=== PATIENT | female | born 1995 | race Caucasian/White ===

== ENCOUNTER 2016-07-20 13:25 | Emergency (ER) | payer OTHER ==
[~2016-07-20] VITALS: Ht 165.1 cm; Wt 90.7 kg
[~2016-07-20 13:25] MED LIST: MOTR200T44 PO; PREN1TAB11 PO; PRENTAB40 PO; TYLE325T5 PO
[2016-07-20 13:26] VITALS: BP 173/79
[2016-07-20] MEDS ORDERED: CYCL10TA PO (14:01)
[2016-07-20] MEDS ORDERED: IBUP80TA PO (14:01)
== END 2016-07-20 14:19 | disposition home or self-care (01) ==
LOC: M ED 14:19
DX: M54.32 Sciatica, left side (principal); Z88.5 Allergy status to narcotic agent

== ENCOUNTER 2016-08-14 20:27 | Emergency (ER) | payer OTHER ==
[~2016-08-14] VITALS: Ht 165.1 cm; Wt 81.6 kg
[2016-08-14 20:27] VITALS: BP 130/75
[~2016-08-14 20:27] MED LIST changes: +CYCL10TA PO; +IBUP80TA PO
== END 2016-08-14 21:43 | disposition home or self-care (01) ==
LOC: M ED 21:30
DX: S09.90XA Unspecified injury of head, initial encounter (principal); W07.XXXA Fall from chair, initial encounter; Y92.59 Other trade areas as the place of occurrence of the external cause; Y93.89 Activity, other specified; Y99.0 Civilian activity done for income or pay; F17.200 Nicotine dependence, unspecified, uncomplicated; Z88.5 Allergy status to narcotic agent

== ENCOUNTER 2016-08-27 14:11 | Emergency (ER) | payer OTHER ==
[~2016-08-27] VITALS: Ht 162.6 cm; Wt 81.6 kg
[2016-08-27 14:11] VITALS: BP 117/68
[2016-08-27] MEDS ORDERED: PANTOPRAZOLE 40MG INJ (PROTONIX) (C9113) IV ONE (15:45)
[2016-08-27] MEDS ORDERED: METOCLOPRAMIDE INJ 10MG/2ML VIAL (J2765) IV ONE (15:45)
[2016-08-27] MEDS ORDERED: NS 1,000 ML IV ONE (16:45)
--- NOTE | 2016-08-27 17:44 | REP ---
RIGHT UPPER QUADRANT ULTRASOUND: Real-time sonographic evaluation of the right is performed. The gallbladder demonstrates no evidence of intraluminal sludge or calculi, wall thickening or pericholecystic fluid. There is no intrahepatic or extrahepatic biliary dilatation. The common bile duct measures 3 mm in diameter. Liver and pancreas demonstrate no gross mass. Pancreas is not optimally seen due to overlying bowel gas. Right kidney demonstrates no hydronephrosis or nephroliths with normal size of 11 cm in length. IMPRESSION: Essentially negative right upper quadrant ultrasound. Signed by Lorenzo Sandoval MD 08/28/2016 04:04 P
[2016-08-27 18:09] LABS: BASO % 0.4 % (0.0-1.0); EOS # 0.1 K/mm3 (0.0-0.50); EOS % 1.3 % (0.0-3.0); LARGE UNSTAINED CELL # 0.1 K/mm3 (0.0-0.4); LARGE UNSTAINED CELL % 1.5 % (0.0-4.0); LYMPH # 1.9 K/mm3 (1.5-6.5); LYMPH % 17.9 % (24.0-44.0); MEAN CORPUSCULAR HEMOGLOBIN 28.2 pg (27.0-33.0); MEAN CORPUSCULAR HGB CONC 32.3 g/dl (32.0-36.5); MEAN CORPUSCULAR VOLUME 87.2 fl (80.0-96.0); MONO # 0.6 K/mm3 (0.0-0.8); MONO % 6.5 % (0.0-5.0); NEUTROPHILS # 6.9 K/mm3 (1.8-7.7); NEUTROPHILS % 72.3 % (36.0-66.0); PLATELET COUNT, AUTOMATED 239 k/mm3 (150-450); RED CELL DISTRIBUTION WIDTH 14.3 % (11.5-14.5); WHITE BLOOD COUNT 9.6 K/mm3 (4.0-10.0)
[2016-08-27 18:10] LABS: ADD MORPHOLOGY? YES
[2016-08-27 18:12] LABS: ALKALINE PHOSPHATASE 90 U/L (45-117); ALT/SGPT 30 U/L (12-78); AMYLASE 48 U/L (25-115); ANION GAP 8 MEQ/L (8-16); AST/SGOT 22 U/L (15-37); BILIRUBIN,DIRECT 0.1 MG/DL (0.0-0.2); BILIRUBIN,TOTAL 0.4 MG/DL (0.2-1.0); BLOOD UREA NITROGEN 13 MG/DL (7-18); CALCIUM LEVEL 8.1 MG/DL (8.5-10.1); CARBON DIOXIDE LEVEL 22 MEQ/L (21-32); CHLORIDE LEVEL 111 MEQ/L (98-107); CREATININE FOR GFR 0.69 MG/DL (0.55-1.02); GLOMERULAR FILTRATION RATE > 60.0 (>60); GLUCOSE, FASTING 79 MG/DL (70-105); HCG, SERUM QUANTITATIVE < 1.0 MIU/ML; POTASSIUM SERUM 3.7 MEQ/L (3.5-5.1); SODIUM LEVEL 141 MEQ/L (136-145)
== END 2016-08-27 19:17 | disposition left against medical advice (07) ==
LOC: M ED 17:09
DX: R10.9 Unspecified abdominal pain (principal); Z88.5 Allergy status to narcotic agent

== ENCOUNTER 2016-11-01 20:48 | Emergency (ER) | payer OTHER ==
[~2016-11-01] VITALS: Ht 165.1 cm; Wt 101.0 kg
[2016-11-01 23:27] VITALS: BP 141/74
[2017-02-20] MEDS ORDERED: PRE-TAB3 PO (00:30)
[2017-02-20] MEDS ORDERED: MACR100C43 PO (03:40)
== END 2016-11-01 23:28 | disposition home or self-care (01) ==
LOC: M ED 20:48
DX: F32.9 Major depressive disorder, single episode, unspecified (principal); Z88.5 Allergy status to narcotic agent

== ENCOUNTER 2017-01-01 22:21 | Emergency (ER) | payer OTHER ==
[~2017-01-01] VITALS: Ht 165.1 cm; Wt 100.0 kg
[2017-01-01 22:21] VITALS: BP 157/86
[2017-02-20] MEDS ORDERED: PRE-TAB3 PO (00:30)
[2017-02-20] MEDS ORDERED: MACR100C43 PO (03:40)
== END 2017-01-02 00:58 | disposition left against medical advice (07) ==
LOC: M ED 22:21
DX: R10.9 Unspecified abdominal pain (principal); Z53.21 Procedure and treatment not carried out due to patient leaving prior to being seen by health care provider

== ENCOUNTER → 2017-02-13 | Outpatient (CLI) | payer OTHER ==
[~2017-02-13] MED LIST changes: +MACR100C43 PO; +PRE-TAB3 PO
== END ==
LOC: M LAB 15:35
PROVIDERS: ATTEND Obstetrics & Gynecology
DX: O20.0 Threatened abortion (principal)

== ENCOUNTER → 2017-03-19 | Outpatient (CLI) | payer OTHER ==
[2017-03-19 16:32] LABS: BASO % 0.3 % (0.0-1.0); EOS # 0.1 10^3/uL (0.0-0.50); EOS % 0.7 % (0.0-3.0); IMMATURE GRANULOCYTE % 0.3 % (0-0); LYMPH # 1.9 10^3/uL (1.5-6.5); LYMPH % 20.3 % (24.0-44.0); MEAN CORPUSCULAR HEMOGLOBIN 29.1 pg (27.0-33.0); MEAN CORPUSCULAR HGB CONC 33.7 g/dl (32.0-36.5); MEAN CORPUSCULAR VOLUME 86.3 fl (80.0-96.0); MONO # 0.6 10^3/uL (0.0-0.8); MONO % 6.7 % (0.0-5.0); NEUTROPHILS # 6.8 10^3/uL (1.8-7.7); NEUTROPHILS % 71.7 % (36.0-66.0); PLATELET COUNT, AUTOMATED 307 10^3/uL (150-450); RED CELL DISTRIBUTION WIDTH 13.2 % (11.5-14.5); WHITE BLOOD COUNT 9.5 10^3/uL (4.0-10.0)
[2017-03-20 10:55] LABS: HBsAg Prenatal NEGATIVE (NEGATIVE)
== END ==
LOC: M LAB 15:12
PROVIDERS: ATTEND Advanced Practice Midwife
DX: Z36.89 Encounter for other specified antenatal screening (principal); Z3A.01 Less than 8 weeks gestation of pregnancy

== ENCOUNTER → 2017-03-20 | Outpatient (REF) | payer OTHER | LOC: M LAB REF 12:31 | PROVIDERS: ATTEND Advanced Practice Midwife | DX: Z36.89 Encounter for other specified antenatal screening (principal); Z3A.01 Less than 8 weeks gestation of pregnancy ==

== ENCOUNTER → 2017-03-25 | Outpatient (REF) | payer OTHER, MEDICAID | LOC: M LAB REF 17:04 | PROVIDERS: ATTEND Advanced Practice Midwife | DX: Z36.9 Encounter for antenatal screening, unspecified (principal); Z34.81 Encounter for supervision of other normal pregnancy, first trimester ==

== ENCOUNTER → 2017-04-19 | Outpatient (CLI) | payer OTHER ==
[2017-04-19 13:50] LABS: ALT/SGPT 13 U/L (12-78); AST/SGOT 5 U/L (7-37); BILIRUBIN,TOTAL 0.3 MG/DL (0.2-1.0); GLOMERULAR FILTRATION RATE > 60.0 (>60); URIC ACID 3.3 MG/DL (2.6-6.0)
== END ==
LOC: M LAB 12:32
DX: Z34.81 Encounter for supervision of other normal pregnancy, first trimester (principal)
CPT/HCPCS: 84460

== ENCOUNTER → 2017-05-20 | Outpatient (CLI) | payer OTHER | LOC: M RAD 09:27 | DX: Z34.82 Encounter for supervision of other normal pregnancy, second trimester (principal) | CPT/HCPCS: 76811 ==

== ENCOUNTER 2017-06-01 17:11 | Outpatient (CLI) | payer OTHER ==
[2017-06-01 18:39] LABS: APPEARANCE, URINE HAZY (CLEAR); BACTERIA, URINE AUTO NEGATIVE (NEGATIVE); BILIRUBIN, URINE AUTO NEGATIVE (NEGATIVE); BLOOD, URINE BLOOD 1+ (NEGATIVE); COLOR, URINE YELLOW (YELLOW); GLUCOSE, URINE (UA) AUTO NEGATIVE (NEGATIVE); KETONE, URINE AUTO NEGATIVE (NEGATIVE); LEUKOCYTE ESTERASE, URINE AUTO 3+ (NEGATIVE); MUCUS, URINE SMALL (NEGATIVE); NITRITE, URINE AUTO NEGATIVE (NEGATIVE); PROTEIN, URINE AUTO NEGATIVE (NEGATIVE); RBC, URINE AUTO 12 /HPF (0-3); SPECIFIC GRAVITY URINE AUTO 1.017 (1.002-1.035); SQUAMOUS EPITHELIAL CELL UR AU 2 /HPF (0-6); UROBILINOGEN, URINE AUTO 0.2 mg/dL (0.0-2.0); WBC, URINE AUTO 11 /HPF (0-3)
== END 2017-06-01 18:24 | disposition home or self-care (01) ==
LOC: M LDO 17:11
DX: O99.89 Other specified diseases and conditions complicating pregnancy, childbirth and the puerperium (principal); Z3A.20 20 weeks gestation of pregnancy; O23.42 Unspecified infection of urinary tract in pregnancy, second trimester
CPT/HCPCS: 76815

== ENCOUNTER → 2017-06-07 | Outpatient (CLI) | payer OTHER | LOC: M RAD 13:30 | DX: Z36.89 Encounter for other specified antenatal screening (principal); Z3A.21 21 weeks gestation of pregnancy | CPT/HCPCS: 76816 ==

== ENCOUNTER 2017-07-01 12:48 | Outpatient (CLI) | payer SELFPAY, OTHER ==
[2017-07-01 18:27] LABS: CHLAMYDIA DNA AMPLIFICATION NEGATIVE (NEGATIVE); GC DNA AMPLIFICATION NEGATIVE (NEGATIVE)
== END 2017-07-01 15:30 | disposition home or self-care (01) ==
LOC: M LDO 12:48
DX: O26.892 Other specified pregnancy related conditions, second trimester (principal); Z3A.24 24 weeks gestation of pregnancy; Z91.030 Bee allergy status; Z88.5 Allergy status to narcotic agent; Z91.018 Allergy to other foods
CPT/HCPCS: 59025

== ENCOUNTER → 2017-07-16 | Outpatient (CLI) | payer MEDICAID, SELFPAY | LOC: M RAD 17:03 | DX: Z36.9 Encounter for antenatal screening, unspecified (principal); Z3A.26 26 weeks gestation of pregnancy | CPT/HCPCS: 76816 ==

== ENCOUNTER → 2017-07-31 | Outpatient (CLI) | payer MEDICAID, SELFPAY ==
[2017-07-31 11:19] LABS: HEMATOCRIT 35.1 % (36.0-47.0); HEMOGLOBIN 11.5 g/dl (12.0-15.5); MEAN CORPUSCULAR HEMOGLOBIN 29.4 pg (27.0-33.0); MEAN CORPUSCULAR HGB CONC 32.8 g/dl (32.0-36.5); MEAN CORPUSCULAR VOLUME 89.8 fl (80.0-96.0); PLATELET COUNT, AUTOMATED 241 10^3/uL (150-450); RED BLOOD COUNT 3.91 10^6/uL (4.00-5.40); RED CELL DISTRIBUTION WIDTH 13.7 % (11.5-14.5)
[2017-07-31 11:44] LABS: ALBUMIN 2.9 GM/DL (3.2-5.2); ALBUMIN/GLOBULIN RATIO 0.67 (1.00-1.93); ALKALINE PHOSPHATASE 120 U/L (45-117); ALT/SGPT 10 U/L (12-78); AMYLASE 59 U/L (25-115); BILIRUBIN,DIRECT < 0.1 MG/DL (0.0-0.2); BILIRUBIN,TOTAL 0.3 MG/DL (0.2-1.0); LIPASE 116 U/L (73-393); TOTAL PROTEIN 7.2 GM/DL (6.4-8.2)
[2017-08-01 11:15] LABS: AST/SGOT 7 U/L (7-37); WHITE BLOOD COUNT 10.1 10^3/uL (4.0-10.0)
== END ==
LOC: M LAB 10:55
DX: R10.11 Right upper quadrant pain (principal)
CPT/HCPCS: 82150

== ENCOUNTER 2017-08-01 05:14 | Outpatient (CLI) | payer SELFPAY ==
[2017-08-01] MEDS: PROMETHAZINE INJ 25 MG/ML VIAL (J2550) IV (06:14)
[2017-08-01] MEDS: LACTATED RINGER'S 1000 ML IV (06:14)
[2017-08-01 06:39] LABS: HEMATOCRIT 33.1 % (36.0-47.0); MEAN CORPUSCULAR HEMOGLOBIN 30.1 pg (27.0-33.0); MEAN CORPUSCULAR HGB CONC 33.2 g/dl (32.0-36.5); MEAN CORPUSCULAR VOLUME 90.4 fl (80.0-96.0); PLATELET COUNT, AUTOMATED 226 10^3/uL (150-450); RED BLOOD COUNT 3.66 10^6/uL (4.00-5.40); RED CELL DISTRIBUTION WIDTH 13.7 % (11.5-14.5); WHITE BLOOD COUNT 11.5 10^3/uL (4.0-10.0)
[2017-08-01 07:01] LABS: ALBUMIN 2.6 GM/DL (3.2-5.2); ALBUMIN/GLOBULIN RATIO 0.68 (1.00-1.93); ALKALINE PHOSPHATASE 108 U/L (45-117); ALT/SGPT 11 U/L (12-78); AMYLASE 49 U/L (25-115); AST/SGOT 6 U/L (7-37); BILIRUBIN,DIRECT < 0.1 MG/DL (0.0-0.2); BILIRUBIN,TOTAL 0.2 MG/DL (0.2-1.0); LIPASE 108 U/L (73-393); TOTAL PROTEIN 6.4 GM/DL (6.4-8.2)
[2017-08-01] MEDS ORDERED: FAMOTIDINE 20 MG TAB As Ordered (07:57)
[2017-08-01] MEDS: FAMOTIDINE 20 MG TAB PO (08:04)
[2017-08-01] MEDS: LR 1,000 ML IV (09:10)
== END 2017-08-01 10:10 | disposition home or self-care (01) ==
LOC: M LDO 05:14
DX: O26.893 Other specified pregnancy related conditions, third trimester (principal); R10.11 Right upper quadrant pain; O21.8 Other vomiting complicating pregnancy; Z3A.28 28 weeks gestation of pregnancy
CPT/HCPCS: 76705

== ENCOUNTER → 2017-08-13 | Outpatient (CLI) | payer MEDICAID, SELFPAY ==
[2017-08-13 12:44] LABS: BASO % 0.2 % (0.0-1.0); EOS # 0.2 10^3/uL (0.0-0.50); EOS % 1.8 % (0.0-3.0); HEMATOCRIT 33.5 % (36.0-47.0); HEMOGLOBIN 11.1 g/dl (12.0-15.5); IMMATURE GRANULOCYTE % 0.6 % (0-3.0); LYMPH # 1.7 10^3/uL (1.5-6.5); LYMPH % 16.8 % (24.0-44.0); MEAN CORPUSCULAR HEMOGLOBIN 30.1 pg (27.0-33.0); MEAN CORPUSCULAR HGB CONC 33.1 g/dl (32.0-36.5); MEAN CORPUSCULAR VOLUME 90.8 fl (80.0-96.0); MONO # 0.7 10^3/uL (0.0-0.8); MONO % 6.8 % (0.0-5.0); NEUTROPHILS # 7.4 10^3/uL (1.8-7.7); NEUTROPHILS % 73.8 % (36.0-66.0); PLATELET COUNT, AUTOMATED 234 10^3/uL (150-450); RED BLOOD COUNT 3.69 10^6/uL (4.00-5.40); RED CELL DISTRIBUTION WIDTH 13.9 % (11.5-14.5); WHITE BLOOD COUNT 10.1 10^3/uL (4.0-10.0)
[2017-08-13 13:00] LABS: GLUCOSE CHALLENGE TEST 1 HOUR 101 MG/DL (LESS THAN 140)
== END ==
LOC: M LAB 10:47
DX: Z34.82 Encounter for supervision of other normal pregnancy, second trimester (principal)
CPT/HCPCS: 82950

== ENCOUNTER → 2017-09-27 | Outpatient (REF) | payer MEDICAID | LOC: M LAB REF 17:10 | DX: Z34.83 Encounter for supervision of other normal pregnancy, third trimester (principal); Z3A.00 Weeks of gestation of pregnancy not specified ==

== ENCOUNTER 2017-12-02 19:10 | Emergency (ER) | payer OTHER, MEDICAID | END 2017-12-02 23:30 | disposition home or self-care (01) | LOC: M ED 19:10 | DX: J03.90 Acute tonsillitis, unspecified (principal); J45.909 Unspecified asthma, uncomplicated; Z88.5 Allergy status to narcotic agent; Z91.030 Bee allergy status; Z91.018 Allergy to other foods | CPT/HCPCS: 87880 ==

== ENCOUNTER → 2018-01-24 | Outpatient (CLI) | payer OTHER ==
[2018-01-24 17:44] LABS: CONTROL LINE HCG INT CTR LINE PRESENT; HCG, SERUM QUALITATIVE NEGATIVE (NEGATIVE)
[2018-01-24 17:49] LABS: CHOLESTEROL LEVEL 112 MG/DL (<200); FREE T4 0.86 NG/DL (0.76-1.46); HDL CHOLESTEROL 50 MG/DL (>40); LDL CHOLESTEROL 34 MG/DL (<100); NON-HDL-C 62 MG/DL; TRIGLYCERIDES LEVEL 141 MG/DL (<150)
[2018-01-24 17:51] LABS: TOTAL 25(OH) VITAMIN D 17.8 NG/ML (30.0-100.0)
[2018-01-24 17:52] LABS: FOLATE 8.8 NG/ML
[2018-01-24 18:30] LABS: BASO % 0.4 % (0.0-1.0); EOS # 0.2 10^3/uL (0.0-0.50); EOS % 2.4 % (0.0-3.0); HEMATOCRIT 37.4 % (36.0-47.0); HEMOGLOBIN 12.3 g/dl (12.0-15.5); IMMATURE GRANULOCYTE % 0.3 % (0-3.0); LYMPH # 2.7 10^3/uL (1.5-6.5); LYMPH % 29.2 % (24.0-44.0); MEAN CORPUSCULAR HGB CONC 32.9 g/dl (32.0-36.5); MEAN CORPUSCULAR VOLUME 85.2 fl (80.0-96.0); MONO # 0.6 10^3/uL (0.0-0.8); MONO % 6.3 % (0.0-5.0); NEUTROPHILS # 5.7 10^3/uL (1.8-7.7); NEUTROPHILS % 61.4 % (36.0-66.0); PLATELET COUNT, AUTOMATED 300 10^3/uL (150-450); RED BLOOD COUNT 4.39 10^6/uL (4.00-5.40); RED CELL DISTRIBUTION WIDTH 13.9 % (11.5-14.5); WHITE BLOOD COUNT 9.3 10^3/uL (4.0-10.0)
== END ==
LOC: M LAB 16:10
DX: F32.1 Major depressive disorder, single episode, moderate (principal)
CPT/HCPCS: 82746

== ENCOUNTER 2018-03-30 19:17 | Emergency (ER) | payer OTHER ==
[2018-03-30] MEDS: METOCLOPRAMIDE INJ 10MG/2ML VIAL (J2765) IV (19:30)
[2018-03-30] MEDS: NS 1,000 ML IV (19:30)
[2018-03-30 20:06] LABS: BASO % 0.3 % (0.0-1.0); EOS # 0.1 10^3/uL (0.0-0.50); EOS % 1.6 % (0.0-3.0); HEMOGLOBIN 11.8 g/dl (12.0-15.5); IMMATURE GRANULOCYTE % 0.3 % (0-3.0); LYMPH # 2.1 10^3/uL (1.5-6.5); LYMPH % 27.9 % (24.0-44.0); MEAN CORPUSCULAR HEMOGLOBIN 28.2 pg (27.0-33.0); MEAN CORPUSCULAR HGB CONC 31.9 g/dl (32.0-36.5); MEAN CORPUSCULAR VOLUME 88.3 fl (80.0-96.0); MONO # 0.5 10^3/uL (0.0-0.8); MONO % 6.7 % (0.0-5.0); NEUTROPHILS # 4.9 10^3/uL (1.8-7.7); NEUTROPHILS % 63.2 % (36.0-66.0); PLATELET COUNT, AUTOMATED 266 10^3/uL (150-450); RED BLOOD COUNT 4.19 10^6/uL (4.00-5.40); RED CELL DISTRIBUTION WIDTH 13.6 % (11.5-14.5); WHITE BLOOD COUNT 7.7 10^3/uL (4.0-10.0)
[2018-03-30 20:22] LABS: HCG, SERUM QUANTITATIVE < 1.0 MIU/ML
[2018-03-30 20:48] LABS: KETONE, URINE AUTO RFX NEGATIVE (NEGATIVE); MUCUS, URINE RFX SMALL (NEGATIVE); NITRITE, URINE AUTO RFX NEGATIVE (NEGATIVE); RBC, URINE AUTO RFX 123 /HPF (0-3); SQUAM EPITHELIAL CELL UR AURFX 5 /HPF (0-6)
[2018-03-30 20:49] LABS: LEUKOCYTE ESTERASE UR AUTO RFX TRACE (NEGATIVE); WBC, URINE AUTO RFX 34 /HPF (0-3)
== END 2018-03-30 21:25 | disposition home or self-care (01) ==
LOC: M ED 19:17
DX: R25.2 Cramp and spasm (principal); N76.0 Acute vaginitis; F41.9 Anxiety disorder, unspecified; Z88.5 Allergy status to narcotic agent; Z91.018 Allergy to other foods; Z91.030 Bee allergy status
CPT/HCPCS: J2765

== ENCOUNTER 2018-05-27 18:19 | Emergency (ER) | payer OTHER ==
[~2018-05-27] VITALS: Ht 162.6 cm; Wt 100.0 kg
[~2018-05-27 18:19] MED LIST changes: +CLEO300C2 PO; +FLAG500T PO; +MAPA500T2 PO
[2018-05-27] MEDS ORDERED: PRENATAL (18:30)
[2018-05-27] MEDS ORDERED: MACR100C43 PO (20:28)
[2018-05-27] MEDS ORDERED: NITROFURANTOIN (MACROBID) 100 MG CAP PO ONE (20:30)
[2018-05-27 20:36] VITALS: BP 133/72
== END 2018-05-27 20:39 | disposition home or self-care (01) ==
LOC: M ED 18:19
DX: O23.11 Infections of bladder in pregnancy, first trimester (principal); O99.511 Diseases of the respiratory system complicating pregnancy, first trimester; J45.909 Unspecified asthma, uncomplicated; Z3A.08 8 weeks gestation of pregnancy; Z88.5 Allergy status to narcotic agent; Z91.018 Allergy to other foods; Z91.030 Bee allergy status

== ENCOUNTER → 2018-06-27 | Outpatient (CLI) | payer OTHER ==
[~2018-06-27] MED LIST changes: +PRENATAL
[2018-06-27 11:51] LABS: BASO % 0.2 % (0.0-1.0); EOS # 0.1 10^3/uL (0.0-0.50); EOS % 0.9 % (0.0-3.0); HEMATOCRIT 34.8 % (36.0-47.0); HEMOGLOBIN 11.6 g/dl (12.0-15.5); LYMPH # 1.5 10^3/uL (1.5-6.5); LYMPH % 18.8 % (24.0-44.0); MEAN CORPUSCULAR HGB CONC 33.3 g/dl (32.0-36.5); MONO # 0.6 10^3/uL (0.0-0.8); MONO % 7.2 % (0.0-5.0); NEUTROPHILS # 5.9 10^3/uL (1.8-7.7); NEUTROPHILS % 72.5 % (36.0-66.0); PLATELET COUNT, AUTOMATED 242 10^3/uL (150-450); WHITE BLOOD COUNT 8.1 10^3/uL (4.0-10.0)
[2018-06-27 12:21] LABS: TOTAL PROTEIN,RANDOM URINE 14.1 MG/DL (0.0-12.0)
[2018-06-27 12:35] LABS: HEMOGLOBIN A1c 5.1 %
[2018-06-27 12:47] LABS: ALT/SGPT 13 U/L (12-78); BILIRUBIN,TOTAL 0.2 MG/DL (0.2-1.0); GLOMERULAR FILTRATION RATE > 60.0 (>60); GLUCOSE CHALLENGE TEST 1 HOUR 64 MG/DL (LESS THAN 140); LDH LACTATE DEHYDROGENASE 123 U/L (84-246); RUBELLA IgG QUALITATIVE IMMUNE (IMMUNE); URIC ACID 3.2 MG/DL (2.6-6.0)
[2018-06-27 12:56] LABS: HIV 1&2 SCREEN CENTAUR NEGATIVE (NEGATIVE)
[2018-06-27 13:28] LABS: CHLAMYDIA DNA AMPLIFICATION NEGATIVE (NEGATIVE); GC DNA AMPLIFICATION NEGATIVE (NEGATIVE)
== END ==
LOC: M LAB 10:12
PROVIDERS: ATTEND Advanced Practice Midwife
DX: Z34.81 Encounter for supervision of other normal pregnancy, first trimester (principal); Z3A.08 8 weeks gestation of pregnancy

== ENCOUNTER → 2018-07-02 | Outpatient (REF) | payer OTHER | LOC: M LAB REF 12:49 | PROVIDERS: ATTEND Advanced Practice Midwife | DX: O23.41 Unspecified infection of urinary tract in pregnancy, first trimester (principal); Z3A.00 Weeks of gestation of pregnancy not specified ==

== ENCOUNTER → 2018-07-02 | Outpatient (REF) | payer OTHER | LOC: M LAB REF 13:20 | PROVIDERS: ATTEND Advanced Practice Midwife | DX: Z12.4 Encounter for screening for malignant neoplasm of cervix (principal); R87.612 Low grade squamous intraepithelial lesion on cytologic smear of cervix (LGSIL) ==

== ENCOUNTER 2018-07-23 21:39 | Emergency (ER) | payer OTHER ==
[~2018-07-23] VITALS: Ht 165.1 cm; Wt 100.0 kg
[2018-07-23] MEDS ORDERED: ONDANSETRON 4 MG ORAL DISINTEGRATING TAB (Q0162 PER 1MG) PO ONE (22:15)
[2018-07-23 23:03] LABS: INFLUENZA A AMPLIFICATION NEGATIVE (NEGATIVE); INFLUENZA B AMPLIFICATION NEGATIVE (NEGATIVE)
[2018-07-23] MEDS ORDERED: ZOFR4TAB16 PO (23:18)
[2018-07-23 23:25] VITALS: BP 135/60
== END 2018-07-23 23:30 | disposition home or self-care (01) ==
LOC: M ED 21:39
DX: J21.0 Acute bronchiolitis due to respiratory syncytial virus (principal); Z91.030 Bee allergy status; Z88.5 Allergy status to narcotic agent; Z91.018 Allergy to other foods
CPT/HCPCS: 87631; 99283; Q0162

== ENCOUNTER → 2018-07-31 | Outpatient (CLI) | payer OTHER ==
[~2018-07-31] MED LIST changes: +ZOFR4TAB16 PO
--- NOTE | 2018-08-01 05:05 | REP ---
Clinical: Anatomical evaluation. Comparison: None . Findings: Examination demonstrates a single live intrauterine in transverse (head to maternal right) presentation. motion is identified by technologist. Placenta is noted anterior and grade air grade zero without evidence for placenta previa or abruption. Amniotic fluid volume is normal. Cervix measures 4.6 cm in length and appears closed. No evidence for nuchal cord. Gestational age by LMP 18 weeks 0 days with DANIEL 01/01/2019 . Gestational age by current measurements 17 weeks 0 days with DANIEL 01/08/2019 . FHR equals 157 beats per minute. BPD 3.5 cm 16 weeks 6 days HC 13.3 cm 16 weeks 6 days AC 11.0 cm 16 weeks 6 days FL 2.5 cm 17 weeks 4-day HL 2.3 cm 17 weeks 0 day HC/AC ratio 1.21 Estimated weight 182 grams ( the 16th percentile). Anatomical assessment demonstrates normal structures including cranium, choroid plexus, cavum, lungs, four-chamber heart, diaphragm, stomach, cord insertion, kidneys/bladder, and extremities. Limited evaluation of the posterior fossa, facial features, cardiac ventricular outflow tracts, three-vessel cord, and spine. Impression: 1. Single live intrauterine in transverse lie demonstrating appropriate interval growth. 2. Anatomical limitations may warrant reevaluation and follow-up. Electronically Signed by Ren Robertson MD 08/01/2018 04:57 A
== END ==
LOC: M RAD 10:22
PROVIDERS: ATTEND Obstetrics & Gynecology
DX: O10.012 Pre-existing essential hypertension complicating pregnancy, second trimester (principal); Z3A.17 17 weeks gestation of pregnancy

== ENCOUNTER → 2018-09-02 | Outpatient (CLI) | payer OTHER ==
--- NOTE | 2018-09-03 06:41 | REP ---
Clinical: Anatomical evaluation. Comparison: 07/31/2018 . Findings: Examination demonstrates a single live intrauterine in transverse (head to maternal left) presentation. motion is identified by technologist. Placenta is noted anterior fundal and grade grade zero without evidence for placenta previa or abruption. Amniotic fluid volume is normal. Cervix measures 5.9 cm in length and appears closed. No evidence for nuchal cord. Gestational age by LMP 22 weeks 5 days with DANIEL 01/01/2019 . Gestational age by current measurements 21 weeks to date with DANIEL 01/11/2019 . FHR equals 139 beats per minute. Estimated weight 418 grams ( 34th percentile). Anatomical assessment demonstrates normal structures including cerebellum/posterior fossa, facial features, three-vessel cord, and spine. Impression: 1. Single live intrauterine in transverse lie demonstrating appropriate interval growth. 2. Continued limited evaluation of the cardiac ventricular outflow tracts. In conjunction with prior examination anatomical assessment is otherwise complete and normal. Electronically Signed by Ren Robertson MD 09/03/2018 06:31 A
== END ==
LOC: M RAD 16:06
PROVIDERS: ATTEND Obstetrics & Gynecology
DX: O10.012 Pre-existing essential hypertension complicating pregnancy, second trimester (principal); Z3A.21 21 weeks gestation of pregnancy

== ENCOUNTER → 2018-10-08 | Outpatient (CLI) | payer OTHER ==
--- NOTE | 2018-10-08 12:05 | REP ---
OB ULTRASOUND: Real-time sonographic evaluation of the gravid uterus is performed. There is a single living intrauterine gestation with estimated gestational age 27 weeks 6 days, EDC 01/01/2019. Today's measurements indicate appropriate growth. Biometry and Growth: BPD 65 mm = 26 weeks 1 day, 13th percentile HC 241 mm = 26 weeks 1 day, 12th percentile AC 226 mm = 27 weeks 0 days, 32nd percentile FL 55 mm = 29 weeks 0 days, 73rd percentile HC/AC ratio 1.06 within the normal range. Estimated weight 1091 grams, 34th percentile. SEEN/GROSSLY UNREMARKABLE Lateral ventricles Yes Posterior fossa Yes Upper lip Yes Four-chamber heart Yes LVOT Yes RVOT Yes Stomach Yes Cord insertion Yes Three vessel cord Yes Kidneys Yes Bladder Yes Spine Yes Cervical length: Closed and measures 3.3 cm in length. heart rate: 141 beats per minute. position: Vertex. Placenta: Anterior and grade 2 with no previa or abruption. Amniotic fluid: Within normal limits. Electronically Signed by Lorenzo Sandoval MD 10/08/2018 04:38 P
== END ==
LOC: M RAD 10:33
PROVIDERS: ATTEND Advanced Practice Midwife
DX: O10.012 Pre-existing essential hypertension complicating pregnancy, second trimester (principal); Z3A.27 27 weeks gestation of pregnancy

== ENCOUNTER → 2018-11-03 | Outpatient (CLI) | payer OTHER ==
[2018-11-03 14:04] LABS: HEMATOCRIT 31.5 % (36.0-47.0); HEMOGLOBIN 10.2 g/dl (12.0-15.5); MEAN CORPUSCULAR HEMOGLOBIN 29.9 pg (27.0-33.0); MEAN CORPUSCULAR HGB CONC 32.4 g/dl (32.0-36.5); MEAN CORPUSCULAR VOLUME 92.4 fl (80.0-96.0); PLATELET COUNT, AUTOMATED 209 10^3/uL (150-450); RED BLOOD COUNT 3.41 10^6/uL (4.00-5.40); WHITE BLOOD COUNT 7.5 10^3/uL (4.0-10.0)
== END ==
LOC: M LAB 12:18
PROVIDERS: ATTEND Obstetrics & Gynecology
DX: O10.012 Pre-existing essential hypertension complicating pregnancy, second trimester (principal); Z36.89 Encounter for other specified antenatal screening; Z3A.00 Weeks of gestation of pregnancy not specified

== ENCOUNTER → 2018-11-03 | Outpatient (CLI) | payer OTHER | LOC: M LAB 12:22 | PROVIDERS: ATTEND Advanced Practice Midwife | DX: O10.012 Pre-existing essential hypertension complicating pregnancy, second trimester (principal); Z36.89 Encounter for other specified antenatal screening; Z3A.00 Weeks of gestation of pregnancy not specified ==

== ENCOUNTER 2018-11-16 17:54 | Outpatient (CLI) | payer OTHER ==
[~2018-11-16] VITALS: Ht 165.1 cm; Wt 103.1 kg
[2018-11-16 18:24] VITALS: BP 122/67
[2018-11-16 18:51] VITALS: BP 119/70
[2018-11-16] MEDS ORDERED: PROMETHAZINE 25 MG TAB PO ONE (20:15)
[2018-11-16] MEDS ORDERED: PROMETHAZINE 25 MG TAB As Ordered ONE (20:19)
== END 2018-11-16 20:23 | disposition home or self-care (01) ==
LOC: M LDO 17:54
PROVIDERS: ATTEND Obstetrics & Gynecology
DX: O26.893 Other specified pregnancy related conditions, third trimester (principal); Z3A.33 33 weeks gestation of pregnancy; O13.9 Gestational [pregnancy-induced] hypertension without significant proteinuria, unspecified trimester; O99.013 Anemia complicating pregnancy, third trimester; Z88.5 Allergy status to narcotic agent

== ENCOUNTER 2018-12-04 23:48 | Outpatient (CLI) | payer OTHER ==
[~2018-12-04] VITALS: Ht 165.1 cm; Wt 104.6 kg
== END 2018-12-05 00:40 | disposition home or self-care (01) ==
LOC: M LDO 23:48
PROVIDERS: ATTEND Obstetrics & Gynecology
DX: O26.853 Spotting complicating pregnancy, third trimester (principal); O47.03 False labor before 37 completed weeks of gestation, third trimester; Z3A.36 36 weeks gestation of pregnancy

== ENCOUNTER → 2018-12-04 | Outpatient (REF) | payer OTHER | LOC: M LAB REF 13:09 | PROVIDERS: ATTEND Advanced Practice Midwife | DX: O10.013 Pre-existing essential hypertension complicating pregnancy, third trimester (principal) ==

== ENCOUNTER 2018-12-25 17:02 | Inpatient (IN) | payer OTHER ==
[~2018-12-25] VITALS: Ht 165.1 cm; Wt 106.0 kg
[2018-12-25] MEDS ORDERED: PENICILLIN G POTASSIUM IV 5 MU in D5W MINI-BAG PLUS 100 ML IV STA (18:03)
[2018-12-25] MEDS ORDERED: miSOPROStol 50 MCG 1/2 TAB (S0191) PO SCH (18:15)
[2018-12-25 18:56] VITALS: BP 122/76
[2018-12-25 19:03] LABS: HEMATOCRIT 30.4 % (36.0-47.0); HEMOGLOBIN 9.7 g/dl (12.0-15.5); MEAN CORPUSCULAR HEMOGLOBIN 28.4 pg (27.0-33.0); MEAN CORPUSCULAR HGB CONC 31.9 g/dl (32.0-36.5); MEAN CORPUSCULAR VOLUME 89.1 fl (80.0-96.0); PLATELET COUNT, AUTOMATED 210 10^3/uL (150-450); RED BLOOD COUNT 3.41 10^6/uL (4.00-5.40); WHITE BLOOD COUNT 9.3 10^3/uL (4.0-10.0)
[2018-12-25] MEDS ORDERED: LR 1,000 ML IV SCH (19:15)
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
[2018-12-25 19:30] VITALS: BP 116/65
[2018-12-25 19:45] VITALS: BP 116/55
[2018-12-25 20:03] VITALS: BP 116/55
[2018-12-25 21:09] VITALS: BP 93/53
[2018-12-25] MEDS ORDERED: PENICILLIN G POTASSIUM IV 2.5 MU in APPROPRIATE DILUENT 1 EA IV SCH (23:00)
[2018-12-25] MEDS ORDERED: OXYTOCIN 30 UNITS IN 0.9% NaCl 500ML IV BAG (J2590) As Ordered ONE (23:38)
[2018-12-25] MEDS ORDERED: OXYTOCIN DRIP 30 UNITS in APPROPRIATE DILUENT 1 EA IV SCH (23:45)
[2018-12-26] VITALS (37 sets, daily range): BP systolic 82–120; BP diastolic 39–71
[2018-12-26] MEDS ORDERED: FENTANYL 2MCG/ML ROPIVACAINE 0.2% IN 0.9% NACL 100ML IVBAG As Ordered ONE (01:36)
[2018-12-26] MEDS ORDERED: ePHEDrine SULFATE 25 MG/5 ML(5MG/ML) SYRINGE IV PRN (02:05)
[2018-12-26] MEDS ORDERED: diphenhydrAMINE INJ 50MG/ML VIAL (J1200) IV PRN (02:05)
[2018-12-26] MEDS ORDERED: FENTANYL/ROPIVACAINE/NACL BAG 100 ML EPIDURAL SCH (02:05)
[2018-12-26] MEDS ORDERED: ONDANSETRON 4MG/2ML VIAL (J2405) IV PRN (02:05)
[2018-12-26] MEDS ORDERED: EPIDURAL/PCA KEYS XX PRN (02:05)
[2018-12-26] MEDS ORDERED: REFRIGERATOR IV KEYS XX PRN (02:05)
[2018-12-26] MEDS ORDERED: EPIDURAL COMMENT XX SCH (02:05)
[2018-12-26] MEDS ORDERED: NALOXONE INJ 0.4 MG/1 ML VIAL (J2310) IV PRN (02:05)
--- NOTE | 2018-12-26 08:09 | DNPDOC ---
[facility] Delivery Note Delivery Note DATE OF DELIVERY: December 26, 2018 PREDELIVERY DIAGNOSIS: 39+1/7 weeks' gestation and labor. POST DELIVERY DIAGNOSIS: Delivered. PROCEDURE: Spontaneous vaginal delivery. PROVIDER: Flor Mccurdy CNM ANESTHESIA: Epidural. ESTIMATED BLOOD LOSS: 250 mL. FINDINGS: 7 pound 0 ounce, 3180gm female , Score 8/9, no nuchal cord. DELIVERY SUMMARY: Patient is a 23-year-old 4 now para 4-0-0-4 who was admitted to labor and delivery for elective induction of labor. She received pitocin and utilized an epidural for labor coping. AROM clear fluid 0402. Fully dilated with pressure 0700. Viable female child delivered MIKE without difficulty @ 0738. Spontaneous respirations with stimulation, transitioned on maternal abdomen. Cord doubly clamped and cut by FOB under my direction when pulsations ceased. Apgars 8/9. Placenta waggoner, intact with 3v cord and intact succenturiate lobe @ 0751. Fundus firmed with massage and IV pitocin bolus. EBL 250. Cervix, vagina, perineum intact. Sponge, sharp and instrument count correct. Flor Mccurdy CNM Dec 26, 2018 08:09
[2018-12-26] MEDS ORDERED: DOCUSATE SODIUM 100 MG CAP PO PRN (08:15)
[2018-12-26] MEDS ORDERED: MOM 30ML SUSPENSION UDC PO PRN (08:15)
[2018-12-26] MEDS ORDERED: RHOGAM 300 MCG (1500 IU) INJ (J2790) IM SCH (08:15)
[2018-12-26] MEDS ORDERED: DIBUCAINE 1% OINTMENT 30GM TOP PRN (08:15)
[2018-12-26] MEDS ORDERED: ACETAMINOPHEN TAB 650MG DOSE (2X325MG) PO PRN (08:15)
[2018-12-26] MEDS ORDERED: ACETAMINOPHEN 500 MG TAB PO PRN (08:15)
[2018-12-26] MEDS ORDERED: IBUPROFEN 800 MG TAB PO PRN (08:15)
[2018-12-26] MEDS ORDERED: METHYLERGONOVINE MALEATE 0.2 MG TAB PO PRN (08:15)
[2018-12-26] MEDS ORDERED: MEASLES,MUMPS,RUBELLA VACCINE INJ (MMR-II) (90707) SC SCH (08:15)
[2018-12-26] MEDS ORDERED: IBUPROFEN 600 MG TAB PO PRN (08:15)
[2018-12-26] MEDS ORDERED: PRENATAL VITAMINS CHEWABLE TABLET PO SCH (09:00)
[2018-12-27 06:00] VITALS: BP 128/75
== END 2018-12-27 12:40 | disposition home or self-care (01) | DRG 560 ==
LOC: EEVIPCON 17:02 → M LDI 17:02 → M OBS 12-26 10:50
PROVIDERS: ADMIT Advanced Practice Midwife; ATTEND Advanced Practice Midwife
PROC: 10E0XZZ Delivery of Products of Conception, External Approach (ICD-10-PCS; principal; 2018-12-25)
PROC: 3E0P7GC Introduction of Other Therapeutic Substance into Female Reproductive, Via Natural or Artificial Opening (ICD-10-PCS; 2018-12-25)
PROC: 10907ZC Drainage of Amniotic Fluid, Therapeutic from Products of Conception, Via Natural or Artificial Opening (ICD-10-PCS; 2018-12-25)
DX: O99.824 Streptococcus B carrier state complicating childbirth (principal); Z3A.39 39 weeks gestation of pregnancy; Z37.0 Single live birth

== ENCOUNTER → 2019-04-03 | Outpatient (REF) | payer OTHER | LOC: M LAB REF 12:19 | PROVIDERS: ATTEND Physician Assistant | DX: J03.90 Acute tonsillitis, unspecified (principal) ==

== ENCOUNTER → 2019-06-09 | Outpatient (REF) | payer OTHER ==
[2019-06-09 13:30] LABS: BASO % 0.6 % (0.0-1.0); EOS # 0.1 10^3/uL (0.0-0.5); EOS % 1.9 % (0.0-3.0); HEMATOCRIT 38.2 % (36.0-47.0); HEMOGLOBIN 11.8 g/dl (12.0-15.5); LYMPH # 1.6 10^3/uL (1.5-5.0); LYMPH % 25.1 % (24.0-44.0); MEAN CORPUSCULAR HEMOGLOBIN 26.5 pg (27.0-33.0); MEAN CORPUSCULAR HGB CONC 30.9 g/dl (32.0-36.5); MEAN CORPUSCULAR VOLUME 85.8 fl (80.0-96.0); MONO # 0.5 10^3/uL (0.0-0.8); MONO % 7.9 % (0.0-5.0); NEUTROPHILS % 64.2 % (36.0-66.0); PLATELET COUNT, AUTOMATED 273 10^3/uL (150-450); RED BLOOD COUNT 4.45 10^6/uL (4.00-5.40); WHITE BLOOD COUNT 6.3 10^3/uL (4.0-10.0)
[2019-06-09 13:44] LABS: ALBUMIN 4.2 GM/DL (3.2-5.2); ALT/SGPT 22 U/L (12-78); BILIRUBIN,TOTAL 0.3 MG/DL (0.2-1.0); BLOOD UREA NITROGEN 11 MG/DL (7-18); CALCIUM LEVEL 8.7 MG/DL (8.5-10.1); CARBON DIOXIDE LEVEL 27 MEQ/L (21-32); CHLORIDE LEVEL 110 MEQ/L (98-107); CHOLESTEROL LEVEL 117 MG/DL (<200); CHOLESTEROL RISK RATIO 2.166 (<5); CREATININE FOR GFR 0.64 MG/DL (0.55-1.30); FREE T4 0.75 NG/DL (0.76-1.46); GLOMERULAR FILTRATION RATE > 60.0 (>60); GLUCOSE, FASTING 98 MG/DL (70-100); HDL CHOLESTEROL 54 MG/DL (>40); LDL CHOLESTEROL 46 MG/DL (<100); NON-HDL-C 63 MG/DL; SODIUM LEVEL 142 MEQ/L (136-145); TOTAL PROTEIN 7.7 GM/DL (6.4-8.2); TRIGLYCERIDES LEVEL 83 MG/DL (<150)
[2019-06-09 13:45] LABS: TOTAL 25(OH) VITAMIN D 8.4 NG/ML (30.0-100.0)
[2019-06-09 14:39] LABS: HEMOGLOBIN A1c 5.4 %
== END ==
LOC: M LAB REF 12:37
PROVIDERS: ATTEND Nurse Practitioner Family
DX: Z13.29 Encounter for screening for other suspected endocrine disorder (principal); Z13.9 Encounter for screening, unspecified; F41.8 Other specified anxiety disorders; J35.01 Chronic tonsillitis

== ENCOUNTER → 2020-01-04 | Outpatient (REF) | payer OTHER, MEDICAID ==
[~2020-01-04] MED LIST changes: +CYCL-707 PO; -CYCL10TA PO
[2020-01-04 18:09] LABS: HIV 1&2 SCREEN CENTAUR NEGATIVE (NEGATIVE)
[2020-01-04 18:36] LABS: CHLAMYDIA DNA AMPLIFICATION NEGATIVE (NEGATIVE); GC DNA AMPLIFICATION NEGATIVE (NEGATIVE)
[2020-01-07 23:07] LABS: HEPATITIS C QUANTITATION HCV Not Detected IU/mL (.)
== END ==
LOC: M LAB REF 15:48
PROVIDERS: ATTEND Physician Assistant
DX: Z12.4 Encounter for screening for malignant neoplasm of cervix (principal); Z11.3 Encounter for screening for infections with a predominantly sexual mode of transmission

== ENCOUNTER → 2020-01-20 | Outpatient (CLI) | payer OTHER | LOC: M LABSMTC 13:40 | PROVIDERS: ATTEND Family Medicine | DX: Z20.828 Contact with and (suspected) exposure to other viral communicable diseases (principal) | CPT/HCPCS: C9803; U0003 ==

== ENCOUNTER → 2021-05-10 | Outpatient (CLI) | payer OTHER ==
[2021-05-10 12:46] LABS: HEMOGLOBIN A1c 5.1 %
== END ==
LOC: M LAB 09:42
PROVIDERS: ATTEND Surgery
DX: Z86.39 Personal history of other endocrine, nutritional and metabolic disease (principal)

== ENCOUNTER → 2022-09-28 | Outpatient (REF) | payer OTHER, MEDICAID ==
[2022-09-28 17:37] LABS: BASO # 0.1 10^3/uL (0.0-0.2); BASO % 0.8 % (0.0-1.0); EOS # 0.1 10^3/uL (0.0-0.5); EOS % 1.6 % (0.0-3.0); HEMATOCRIT 38.2 % (36.0-47.0); HEMOGLOBIN 12.5 g/dl (12.0-15.5); LYMPH % 31.7 % (24.0-44.0); MEAN CORPUSCULAR HEMOGLOBIN 30.1 pg (27.0-33.0); MEAN CORPUSCULAR HGB CONC 32.7 g/dl (32.0-36.5); MONO # 0.5 10^3/uL (0.0-0.8); MONO % 7.4 % (2.0-8.0); NEUTROPHILS # 3.6 10^3/uL (1.5-8.5); PLATELET COUNT, AUTOMATED 221 10^3/uL (150-450); RED BLOOD COUNT 4.15 10^6/uL (4.00-5.40); WHITE BLOOD COUNT 6.3 10^3/uL (4.0-10.0)
[2022-09-28 17:43] LABS: BLOOD UREA NITROGEN 11 MG/DL (9-23); CALCIUM LEVEL 9.3 MG/DL (8.5-10.1); CARBON DIOXIDE LEVEL 28 MMOL/L (20-31); CHLORIDE LEVEL 107 MMOL/L (98-107); CREATININE FOR GFR 0.57 MG/DL (0.55-1.30); GLOMERULAR FILTRATION RATE > 60.0 (>60); GLUCOSE, FASTING 81 MG/DL (60-100); POTASSIUM SERUM 4.2 MMOL/L (3.5-5.1); SODIUM LEVEL 142 MMOL/L (136-145)
[2022-09-28 17:49] LABS: FREE T4 0.82 NG/DL (0.89-1.76)
== END ==
LOC: M LAB REF 16:03
PROVIDERS: ATTEND Physician Assistant
DX: N92.0 Excessive and frequent menstruation with regular cycle (principal); R42 Dizziness and giddiness; R10.32 Left lower quadrant pain; R10.31 Right lower quadrant pain

== ENCOUNTER 2023-05-10 07:38 | Inpatient (IN) | payer MEDICAID, OTHER ==
[~2023-05-10] VITALS: Ht 162.6 cm; Wt 78.4 kg
[2023-05-10] MEDS ORDERED: ONDANSETRON 4MG 2ML VIAL IV ONE (07:50)
[2023-05-10] MEDS ORDERED: NS 1,000 ML IV ONE ×2 (07:50→09:55)
[2023-05-10] MEDS ORDERED: KETOROLAC 30 MG/ML 1ML VIAL IV ONE (07:50)
[2023-05-10] MEDS ORDERED: ACETAMINOPHEN 325 MG TAB PO ONE (07:50)
[2023-05-10] MEDS ORDERED: MULT-90 PO (07:52)
[2023-05-10] MEDS ORDERED: ETON68IM SC (07:52)
[2023-05-10 08:47] LABS: BASO % 0.6 % (0.0-1.0); EOS # 0.2 10^3/uL (0.0-0.5); EOS % 2.2 % (0.0-3.0); HEMATOCRIT 36.3 % (36.0-47.0); HEMOGLOBIN 11.9 g/dl (12.0-15.5); LYMPH # 1.1 10^3/uL (1.5-5.0); LYMPH % 16.2 % (24.0-44.0); MEAN CORPUSCULAR HEMOGLOBIN 28.7 pg (27.0-33.0); MEAN CORPUSCULAR HGB CONC 32.8 g/dl (32.0-36.5); MEAN CORPUSCULAR VOLUME 87.7 fl (80.0-96.0); MONO # 0.6 10^3/uL (0.0-0.8); MONO % 8.4 % (2.0-8.0); NEUTROPHILS # 4.8 10^3/uL (1.5-8.5); NEUTROPHILS % 72.3 % (36.0-66.0); PLATELET COUNT, AUTOMATED 227 10^3/uL (150-450); RED BLOOD COUNT 4.14 10^6/uL (4.00-5.40); WHITE BLOOD COUNT 6.7 10^3/uL (4.0-10.0)
[2023-05-10 09:14] LABS: LIPASE 32 U/L (12-53)
[2023-05-10 09:16] LABS: ALBUMIN 4.1 G/DL (3.2-5.2); ALKALINE PHOSPHATASE 113 U/L (46-116); ALT/SGPT 22 U/L (7.0-40); AMYLASE 73 U/L (30-118); AST/SGOT 16 U/L (<34); BILIRUBIN,DIRECT 0.2 MG/DL (<0.4); BILIRUBIN,TOTAL 0.5 MG/DL (0.3-1.2); BLOOD UREA NITROGEN 11 MG/DL (9-23); CALCIUM LEVEL 9.1 MG/DL (8.5-10.1); CARBON DIOXIDE LEVEL 27 MMOL/L (20-31); CHLORIDE LEVEL 110 MMOL/L (98-107); GLOMERULAR FILTRATION RATE > 60.0 (>60); GLUCOSE, FASTING 96 MG/DL (60-100); SODIUM LEVEL 145 MMOL/L (136-145); TOTAL PROTEIN 7.3 G/DL (5.7-8.2)
[2023-05-10] MEDS ORDERED: HOME MED LIST COMPLETE! XX SCH (10:15)
[2023-05-10] MEDS ORDERED: fentaNYL 100 MCG/2 ML INJECTION IV ONE (11:05)
[2023-05-10] MEDS: GASTROGRAFIN SOLUTION 30ML PO SCH ×2 (11:14→11:45)
[2023-05-10] MEDS ORDERED: ISOVUE-370 76% 100ML VIAL As Ordered ONE (11:43)
[2023-05-10] MEDS ORDERED: fentaNYL 100 MCG/2 ML INJECTION IV PRN (14:05)
[2023-05-10 15:29] LABS: RSV AMPLIFICATION NEGATIVE (NEGATIVE)
[2023-05-10] MEDS: D5W/0.9% SODIUM CHLORIDE 1,000 ML IV SCH (16:04)
[2023-05-10 16:45] VITALS: BP 113/68; TEMP 97.3; O2SAT 100
[2023-05-10] MEDS: ONDANSETRON 4MG 2ML VIAL IV PRN ×2 (16:58→23:02)
[2023-05-10] MEDS: MORPHINE 4 MG/ML 1ML VIAL IV PRN ×2 (17:03→21:52)
[2023-05-10] MEDS: KETOROLAC 30 MG/ML 1ML VIAL IV PRN (20:19)
[2023-05-10 20:46] VITALS: BP 117/57; TEMP 98; O2SAT 99
[2023-05-10] MEDS ORDERED: PANTOPRAZOLE 40MG VIAL IV SCH (21:00)
[2023-05-11] MEDS: MORPHINE 4 MG/ML 1ML VIAL IV PRN ×2 (02:44→08:54)
[2023-05-11] MEDS: D5W/0.9% SODIUM CHLORIDE 1,000 ML IV SCH ×2 (02:44→11:34)
[2023-05-11 05:35] LABS: BASO % 0.5 % (0.0-1.0); EOS # 0.2 10^3/uL (0.0-0.5); EOS % 6.1 % (0.0-3.0); HEMATOCRIT 30.3 % (36.0-47.0); LYMPH # 1.3 10^3/uL (1.5-5.0); LYMPH % 32.7 % (24.0-44.0); MEAN CORPUSCULAR HEMOGLOBIN 28.7 pg (27.0-33.0); MEAN CORPUSCULAR VOLUME 89.6 fl (80.0-96.0); MONO # 0.5 10^3/uL (0.0-0.8); MONO % 13.5 % (2.0-8.0); NEUTROPHILS # 1.8 10^3/uL (1.5-8.5); NEUTROPHILS % 46.9 % (36.0-66.0); PLATELET COUNT, AUTOMATED 174 10^3/uL (150-450); RED BLOOD COUNT 3.38 10^6/uL (4.00-5.40); WHITE BLOOD COUNT 3.9 10^3/uL (4.0-10.0)
[2023-05-11 05:39] LABS: HEMOGLOBIN 9.7 g/dl (12.0-15.5)
[2023-05-11] MEDS ORDERED: ACETAMINOPHEN *IV* 1,000 MG in IV 1 EA IV ONE (05:50)
[2023-05-11 06:00] VITALS: BP 101/56; TEMP 98.1; O2SAT 99
[2023-05-11 06:04] LABS: BLOOD UREA NITROGEN 10 MG/DL (9-23); CALCIUM LEVEL 8.3 MG/DL (8.5-10.1); CARBON DIOXIDE LEVEL 30 MMOL/L (20-31); CHLORIDE LEVEL 114 MMOL/L (98-107); CREATININE FOR GFR 0.78 MG/DL (0.55-1.30); GLOMERULAR FILTRATION RATE > 60.0 (>60); GLUCOSE, FASTING 90 MG/DL (60-100); SODIUM LEVEL 147 MMOL/L (136-145)
[2023-05-11] MEDS: ENOXAPARIN 40MG/0.4ML SYRINGE (J1650 PER 10MG) SC SCH (08:54)
[2023-05-11] MEDS: ONDANSETRON 4MG 2ML VIAL IV PRN ×2 (08:54→17:51)
[2023-05-11] MEDS: KETOROLAC 30 MG/ML 1ML VIAL IV PRN ×2 (11:35→17:51)
[2023-05-11] MEDS: METOCLOPRAMIDE INJ 10MG/2ML VIAL IV PRN ×2 (12:47→20:53)
[2023-05-11] MEDS ORDERED: ACETAMINOPHEN *IV* 1,000 MG in IV 1 EA IV PRN (13:00)
[2023-05-11] MEDS: methocarbamoL 500 MG TAB PO SCH ×2 (13:19→20:21)
[2023-05-11] MEDS: ACETAMINOPHEN 500 MG TAB PO SCH ×2 (13:19→20:22)
[2023-05-11] MEDS: traMADol 50 MG TAB PO SCH ×2 (13:20→20:22)
[2023-05-11 14:00] VITALS: BP 104/54; TEMP 97.6; O2SAT 96
[2023-05-11] MEDS: SUCRALFATE SUSP 1GM/10ML UD PO SCH ×2 (19:28→23:50)
[2023-05-11 19:52] VITALS: BP 113/65; TEMP 98.7; O2SAT 99
[2023-05-11] MEDS: PANTOPRAZOLE 40MG VIAL IV SCH (20:21)
[2023-05-12] MEDS: KETOROLAC 30 MG/ML 1ML VIAL IV PRN (05:25)
[2023-05-12] MEDS: SUCRALFATE SUSP 1GM/10ML UD PO SCH ×3 (05:25→17:22)
[2023-05-12 06:00] VITALS: BP 100/54; TEMP 99.4; O2SAT 96
[2023-05-12 07:07] LABS: BASO % 0.4 % (0.0-1.0); EOS # 0.2 10^3/uL (0.0-0.5); EOS % 3.7 % (0.0-3.0); HEMATOCRIT 30.6 % (36.0-47.0); HEMOGLOBIN 9.7 g/dl (12.0-15.5); LYMPH # 1.3 10^3/uL (1.5-5.0); MEAN CORPUSCULAR HEMOGLOBIN 28.4 pg (27.0-33.0); MEAN CORPUSCULAR HGB CONC 31.7 g/dl (32.0-36.5); MEAN CORPUSCULAR VOLUME 89.5 fl (80.0-96.0); MONO # 0.4 10^3/uL (0.0-0.8); NEUTROPHILS # 2.8 10^3/uL (1.5-8.5); NEUTROPHILS % 59.7 % (36.0-66.0); PLATELET COUNT, AUTOMATED 177 10^3/uL (150-450); RED BLOOD COUNT 3.42 10^6/uL (4.00-5.40); WHITE BLOOD COUNT 4.6 10^3/uL (4.0-10.0)
[2023-05-12 07:41] LABS: BLOOD UREA NITROGEN 10 MG/DL (9-23); CALCIUM LEVEL 8.2 MG/DL (8.5-10.1); CARBON DIOXIDE LEVEL 28 MMOL/L (20-31); CHLORIDE LEVEL 111 MMOL/L (98-107); CREATININE FOR GFR 0.72 MG/DL (0.55-1.30); GLOMERULAR FILTRATION RATE > 60.0 (>60); GLUCOSE, FASTING 87 MG/DL (60-100); SODIUM LEVEL 143 MMOL/L (136-145)
[2023-05-12] MEDS: ENOXAPARIN 40MG/0.4ML SYRINGE (J1650 PER 10MG) SC SCH (08:26)
[2023-05-12] MEDS: PANTOPRAZOLE 40MG VIAL IV SCH (08:26)
[2023-05-12] MEDS: methocarbamoL 500 MG TAB PO SCH (08:26)
[2023-05-12] MEDS: ACETAMINOPHEN 500 MG TAB PO SCH (08:27)
[2023-05-12] MEDS: traMADol 50 MG TAB PO SCH (08:27)
[2023-05-12] MEDS ORDERED: DOCUSATE SODIUM 100MG CAPSULE PO SCH (09:00)
[2023-05-12] MEDS ORDERED: methocarbamoL 500 MG TAB PO PRN (11:40)
[2023-05-12] MEDS ORDERED: traMADol 50 MG TAB PO PRN (11:40)
[2023-05-12] MEDS: LACTULOSE 20GM/30ML SYRUP UDC PO SCH ×2 (12:22→17:22)
[2023-05-12 14:00] VITALS: BP 107/61; TEMP 98.2; O2SAT 99
[2023-05-12] MEDS ORDERED: KETOROLAC 30 MG/ML 1ML VIAL IV SCH (16:25)
[2023-05-12] MEDS ORDERED: TRAM50TA2 PO (17:40)
[2023-05-12] MEDS ORDERED: LACT20EL PO (17:40)
[2023-05-12] MEDS ORDERED: METH-1164 PO (17:40)
[2023-05-12] MEDS ORDERED: ACET-683 PO (17:40)
[2023-05-12] MEDS ORDERED: COLA100C5 PO (17:40)
== END 2023-05-12 18:03 | disposition home or self-care (01) | DRG 351 ==
LOC: M ED 07:38 → EDBD 07:38 → M ED INP 14:22 → ENRESERV 15:45 → M MS4PR 16:45
PROVIDERS: ADMIT Internal Medicine Nephrology; ATTEND Internal Medicine Nephrology
DX: M79.18 Myalgia, other site (principal); E66.01 Morbid (severe) obesity due to excess calories; M54.59 Other low back pain; D64.9 Anemia, unspecified; J45.909 Unspecified asthma, uncomplicated; K59.00 Constipation, unspecified; Z87.442 Personal history of urinary calculi; Z98.84 Bariatric surgery status; Z91.030 Bee allergy status; Z79.899 Other long term (current) drug therapy; Z91.018 Allergy to other foods; Z88.5 Allergy status to narcotic agent

== ENCOUNTER 2023-08-31 14:27 | Emergency (ER) | payer MEDICAID, OTHER ==
[~2023-08-31] VITALS: Ht 162.6 cm; Wt 68.2 kg
[~2023-08-31 14:27] MED LIST changes: +ACET-683 PO; +COLA100C5 PO; +ETON68IM SC; +LACT20EL PO; +METH-1164 PO; +MULT-90 PO; +TRAM50TA2 PO
[2023-08-31 14:34] VITALS: BP 144/79; TEMP 98; O2SAT 99
[2023-08-31] MEDS ORDERED: LEXA1TAB (14:46)
[2023-08-31] MEDS ORDERED: HYDR50TA70 (14:46)
[2023-08-31] MEDS ORDERED: SUMA50TA2 (14:46)
[2023-08-31] MEDS: LIDOCAINE 5% (LIDODERM) PATCH TD ONE (16:43)
== END 2023-08-31 16:57 | disposition home or self-care (01) ==
LOC: EDBD 14:27 → M ED 14:27
DX: M79.672 Pain in left foot (principal); Y04.8XXA Assault by other bodily force, initial encounter; F10.10 Alcohol abuse, uncomplicated; Z98.84 Bariatric surgery status; Y92.009 Unspecified place in unspecified non-institutional (private) residence as the place of occurrence of the external cause; Y93.89 Activity, other specified; Y99.9 Unspecified external cause status; Z91.030 Bee allergy status; Z79.899 Other long term (current) drug therapy

== ENCOUNTER 2023-12-18 13:36 | Emergency (ER) | payer OTHER ==
[~2023-12-18] VITALS: Ht 152.4 cm; Wt 79.3 kg
[~2023-12-18 13:36] MED LIST changes: +HYDR50TA70; +LEXA1TAB; +SUMA50TA2
[2023-12-18] MEDS: ONDANSETRON 4MG ORAL DISINTEGRATING TAB PO ONE (15:56)
[2023-12-18] MEDS: NS 1,000 ML IV ONE (16:49)
[2023-12-18] MEDS: ACETAMINOPHEN 500 MG TAB PO ONE (16:49)
[2023-12-18] MEDS: METOCLOPRAMIDE INJ 10MG/2ML VIAL IV ONE (16:49)
[2023-12-18 17:00] LABS: BASO % 0.6 % (0.0-1.0); EOS % 0.2 % (0.0-3.0); HEMATOCRIT 32.2 % (36.0-47.0); HEMOGLOBIN 10.5 g/dl (12.0-15.5); LYMPH # 0.4 10^3/uL (1.5-5.0); LYMPH % 8.6 % (24.0-44.0); MEAN CORPUSCULAR HEMOGLOBIN 27.9 pg (27.0-33.0); MEAN CORPUSCULAR HGB CONC 32.6 g/dl (32.0-36.5); MEAN CORPUSCULAR VOLUME 85.4 fl (80.0-96.0); MONO # 0.5 10^3/uL (0.0-0.8); NEUTROPHILS # 3.9 10^3/uL (1.5-8.5); NEUTROPHILS % 80.2 % (36.0-66.0); PLATELET COUNT, AUTOMATED 203 10^3/uL (150-450); RED BLOOD COUNT 3.77 10^6/uL (4.00-5.40); WHITE BLOOD COUNT 4.9 10^3/uL (4.0-10.0)
[2023-12-18 17:28] LABS: LIPASE 28 U/L (12-53)
[2023-12-18 17:31] LABS: ALBUMIN 3.7 G/DL (3.2-5.2); ALKALINE PHOSPHATASE 111 U/L (46-116); ALT/SGPT 14 U/L (7.0-40); AST/SGOT < 8 U/L (<34); BILIRUBIN,TOTAL 0.5 MG/DL (0.3-1.2); BLOOD UREA NITROGEN 6 MG/DL (9-23); CARBON DIOXIDE LEVEL 26 MMOL/L (20-31); CHLORIDE LEVEL 107 MMOL/L (98-107); CREATININE FOR GFR 0.57 MG/DL (0.55-1.30); GLOMERULAR FILTRATION RATE > 60.0 (>60); GLUCOSE, FASTING 96 MG/DL (60-100); SODIUM LEVEL 139 MMOL/L (136-145); TOTAL PROTEIN 7.1 G/DL (5.7-8.2)
[2023-12-18 18:24] LABS: HCG, SERUM QUANTITATIVE 51652.3 MIU/ML (<4.2)
[2023-12-18] MEDS ORDERED: REGL10TA6 PO (19:52)
[2023-12-18 20:00] VITALS: BP 110/54; TEMP 99; O2SAT 99
== END 2023-12-18 20:01 | disposition home or self-care (01) ==
LOC: M ED 13:36
DX: O98.511 Other viral diseases complicating pregnancy, first trimester (principal); B34.8 Other viral infections of unspecified site; O21.9 Vomiting of pregnancy, unspecified; O26.891 Other specified pregnancy related conditions, first trimester; N83.202 Unspecified ovarian cyst, left side; I10 Essential (primary) hypertension; J45.909 Unspecified asthma, uncomplicated; Z87.442 Personal history of urinary calculi; Z98.84 Bariatric surgery status; Z91.030 Bee allergy status; Z3A.01 Less than 8 weeks gestation of pregnancy; Z79.899 Other long term (current) drug therapy; Z79.1 Long term (current) use of non-steroidal anti-inflammatories (NSAID)
CPT/HCPCS: 76801; 80053; 81001; 83690; 84702; 85025; 87086; 93976; 96361; 96374; 99284; J2765

== ENCOUNTER 2023-12-28 17:25 | Emergency (ER) | payer OTHER ==
[~2023-12-28] VITALS: Ht 165.1 cm; Wt 77.7 kg
[~2023-12-28 17:25] MED LIST changes: +REGL10TA6 PO
[2023-12-28] MEDS ORDERED: MULTTAB20 PO (17:55)
[2023-12-28 18:07] LABS: BASO % 0.2 % (0.0-1.0); EOS # 0.1 10^3/uL (0.0-0.5); HEMOGLOBIN 10.6 g/dl (12.0-15.5); LYMPH # 1.8 10^3/uL (1.5-5.0); LYMPH % 19.6 % (24.0-44.0); MEAN CORPUSCULAR HEMOGLOBIN 27.1 pg (27.0-33.0); MEAN CORPUSCULAR HGB CONC 32.1 g/dl (32.0-36.5); MEAN CORPUSCULAR VOLUME 84.4 fl (80.0-96.0); MONO # 0.5 10^3/uL (0.0-0.8); MONO % 5.5 % (2.0-8.0); NEUTROPHILS # 6.9 10^3/uL (1.5-8.5); NEUTROPHILS % 73.4 % (36.0-66.0); PLATELET COUNT, AUTOMATED 281 10^3/uL (150-450); RED BLOOD COUNT 3.91 10^6/uL (4.00-5.40); WHITE BLOOD COUNT 9.4 10^3/uL (4.0-10.0)
[2023-12-28] MEDS: NS 1,000 ML IV ONE (18:09)
[2023-12-28 18:14] LABS: LIPASE 40 U/L (12-53)
[2023-12-28 18:15] LABS: AMYLASE 87 U/L (30-118)
[2023-12-28 18:16] LABS: ALBUMIN 3.8 G/DL (3.2-5.2); ALKALINE PHOSPHATASE 113 U/L (46-116); ALT/SGPT 30 U/L (7.0-40); AST/SGOT 71 U/L (<34); BILIRUBIN,DIRECT 0.2 MG/DL (<0.4); BILIRUBIN,TOTAL 0.4 MG/DL (0.3-1.2); BLOOD UREA NITROGEN 11 MG/DL (9-23); CALCIUM LEVEL 9.3 MG/DL (8.5-10.1); CARBON DIOXIDE LEVEL 23 MMOL/L (20-31); CHLORIDE LEVEL 109 MMOL/L (98-107); CREATININE FOR GFR 0.57 MG/DL (0.55-1.30); GLOMERULAR FILTRATION RATE > 60.0 (>60); GLUCOSE, FASTING 90 MG/DL (60-100); POTASSIUM SERUM 3.8 MMOL/L (3.5-5.1); SODIUM LEVEL 140 MMOL/L (136-145); TOTAL PROTEIN 7.4 G/DL (5.7-8.2)
[2023-12-28 18:48] LABS: HCG, SERUM QUANTITATIVE 119545.1 MIU/ML (<4.2)
[2023-12-28 20:27] LABS: Trichomonas vaginalis (AMP) NOT DETECTED (NEGATIVE)
[2023-12-28 20:50] LABS: GC DNA AMPLIFICATION NEGATIVE (NEGATIVE)
[2023-12-28] MEDS: ACETAMINOPHEN *IV* 1,000 MG in IV 1 EA IV ONE (22:43)
[2023-12-28 22:45] VITALS: BP 105/57; TEMP 99; O2SAT 100
== END 2023-12-28 23:30 | disposition home or self-care (01) ==
LOC: M ED 17:25 → EDBD 17:25 → M ED 23:30
DX: O26.891 Other specified pregnancy related conditions, first trimester (principal); K80.20 Calculus of gallbladder without cholecystitis without obstruction; I10 Essential (primary) hypertension; F43.10 Post-traumatic stress disorder, unspecified; F41.9 Anxiety disorder, unspecified; F32.A Depression, unspecified; Z91.030 Bee allergy status; Z87.442 Personal history of urinary calculi; Z3A.08 8 weeks gestation of pregnancy; Z98.84 Bariatric surgery status; Z79.899 Other long term (current) drug therapy
CPT/HCPCS: 76700; 80047; 80048; 80076; 81001; 82150; 83605; 83690; 84702; 85025; 86850; 86900; 86901; 87040; 87086; 87661; 87810; 87850; 93041; 96361; 96365; 99285; J0131

== ENCOUNTER → 2024-01-23 | Outpatient (CLI) | payer OTHER ==
[~2024-01-23] MED LIST changes: +MULTTAB20 PO
[2024-01-23 13:18] LABS: HEMATOCRIT 32.8 % (36.0-47.0); HEMOGLOBIN 10.3 g/dl (12.0-15.5); MEAN CORPUSCULAR HEMOGLOBIN 27.5 pg (27.0-33.0); MEAN CORPUSCULAR HGB CONC 31.4 g/dl (32.0-36.5); MEAN CORPUSCULAR VOLUME 87.5 fl (80.0-96.0); PLATELET COUNT, AUTOMATED 241 10^3/uL (150-450); RED BLOOD COUNT 3.75 10^6/uL (4.00-5.40); WHITE BLOOD COUNT 6.3 10^3/uL (4.0-10.0)
[2024-01-23 13:40] LABS: TOTAL PROTEIN,RANDOM URINE 20.3 MG/DL (0.0-14.0)
[2024-01-23 13:44] LABS: CREATININE,RANDOM URINE 182.5 MG/DL
[2024-01-23 13:45] LABS: URIC ACID 3.4 MG/DL (3.1-7.8)
[2024-01-23 13:47] LABS: LDH LACTATE DEHYDROGENASE 140 U/L (120-246)
[2024-01-23 13:48] LABS: ALT/SGPT 12 U/L (7.0-40); AST/SGOT 8 U/L (<34); BILIRUBIN,TOTAL 0.3 MG/DL (0.3-1.2); CREATININE FOR GFR 0.56 MG/DL (0.55-1.30); GLOMERULAR FILTRATION RATE > 60.0 (>60)
[2024-01-23 13:51] LABS: VITAMIN B12 LEVEL 391 PG/ML (211-911)
[2024-01-23 14:12] LABS: HIV 1&2 SCREEN NEGATIVE (NEGATIVE)
[2024-01-23 14:19] LABS: HEPATITIS C VIRUS ABY INDEX 0.04 INDEX (<0.8)
[2024-01-23 14:51] LABS: GC DNA AMPLIFICATION NEGATIVE (NEGATIVE)
== END ==
LOC: M PLALAB 08:52
PROVIDERS: ATTEND Advanced Practice Midwife
DX: O99.841 Bariatric surgery status complicating pregnancy, first trimester (principal); Z3A.00 Weeks of gestation of pregnancy not specified

== ENCOUNTER 2024-02-10 07:58 | Outpatient (CLI) | payer OTHER ==
[~2024-02-10] VITALS: Ht 162.6 cm; Wt 77.2 kg
[~2024-02-10 07:58] MED LIST changes: +ALBUTEROL SULFATE 2.5MG/0.5ML INH NEB SOLN INH PRN; +EPINEPHrine INJ 1 MG/ML 1ML AMP IM PRN; +FERR32TA PO; +HYDR50TA70 PO; +LEXA1TAB PO; +METO5TAB2 PO; +SERT25TA21 PO; +diphenhydrAMINE 50MG/ML VIAL IV PRN; +methylPREDNISolone 125MG 2ML VIAL IV PRN
[2024-02-10 08:10] VITALS: BP 131/78; O2SAT 97
[2024-02-10] MEDS: IRON SUCROSE 500 MG in NS 250 ML OVER 4 HRS IV ONE (08:56)
[2024-02-10 09:58] VITALS: BP 101/51; O2SAT 99
[2024-02-10 13:00] VITALS: BP 120/56; O2SAT 98
[2024-02-10 13:19] VITALS: BP 126/63; O2SAT 97
== END 2024-02-10 13:20 ==
LOC: M INFU 07:58
PROVIDERS: ATTEND Advanced Practice Midwife
DX: D64.9 Anemia, unspecified (principal); Z91.030 Bee allergy status
CPT/HCPCS: 96365; 96366; J1756

== ENCOUNTER 2024-02-11 10:24 | Day surgery (SDC) | payer OTHER ==
[~2024-02-11] VITALS: Ht 165.1 cm; Wt 79.4 kg
[~2024-02-11 10:24] MED LIST changes: +ACETAMINOPHEN 325 MG TAB PO ONE; -ALBUTEROL SULFATE 2.5MG/0.5ML INH NEB SOLN INH PRN; -EPINEPHrine INJ 1 MG/ML 1ML AMP IM PRN; +INDOCYANINE GREEN 25MG VIAL (IC-GREEN) IV ONE; +LIDOCAINE 2% 100MG/5ML SDV (FOR ANES.) As Ordered ONE; +MIDAZOLAM INJ 2MG/2ML VIAL As Ordered ONE; +ROCURONIUM BROMIDE 50MG/5ML VIAL As Ordered ONE; -diphenhydrAMINE 50MG/ML VIAL IV PRN; +fentaNYL 100 MCG/2 ML INJECTION As Ordered ONE; -methylPREDNISolone 125MG 2ML VIAL IV PRN; +propofoL 200 MG/20 ML VIAL As Ordered ONE
[2024-02-11] MEDS ORDERED: LR 1,000 ML IV SCH ×2 (10:40→14:55)
[2024-02-11] MEDS ORDERED: ALBUTEROL SULFATE 2.5MG/0.5ML INH NEB SOLN INH ONE (10:40)
[2024-02-11] MEDS: ceFAZolin SOD 2 GM in IV 1 EA IV ONE (13:30)
[2024-02-11] MEDS ORDERED: ACETAMINOPHEN 1000MG 100ML IV BAG As Ordered ONE (13:42)
[2024-02-11] MEDS ORDERED: PHENYLephrine 500MCG 5ML (100MCG/ML) SYRINGE As Ordered ONE (13:53)
[2024-02-11] MEDS ORDERED: METOCLOPRAMIDE INJ 10MG/2ML VIAL As Ordered ONE (13:54)
[2024-02-11] MEDS ORDERED: ePHEDrine SULFATE 25 MG/5 ML(5MG/ML) SYRINGE As Ordered ONE (13:55)
[2024-02-11] MEDS ORDERED: NEOSTIGMINE 10MG 10ML VIAL As Ordered ONE (13:55)
[2024-02-11] MEDS ORDERED: GLYCOPYRROLATE INJ 0.2 MG/ML 2 ML VIAL As Ordered ONE (13:55)
[2024-02-11] MEDS: LIDOCAINE 1% SDV 30ML VIAL As Ordered ONE (14:38)
[2024-02-11] MEDS ORDERED: ONDANSETRON 4MG 2ML VIAL IV PRN (14:55)
[2024-02-11] MEDS ORDERED: METOCLOPRAMIDE INJ 10MG/2ML VIAL IV PRN (14:55)
[2024-02-11] MEDS ORDERED: ALBUTEROL SULFATE 2.5MG/0.5ML INH NEB SOLN INH PRN (14:55)
[2024-02-11] MEDS ORDERED: fentaNYL 100 MCG/2 ML INJECTION IV PRN (14:55)
[2024-02-11] MEDS ORDERED: diphenhydrAMINE 50MG/ML VIAL IV PRN (14:55)
[2024-02-11] MEDS ORDERED: MEPERIDINE 25 MG/ML 1ML VIAL IV PRN (14:55)
[2024-02-11] MEDS: HYDROMORPHONE HCL 0.5 MG/ 0.5 ML SYRINGE IV PRN (15:18)
[2024-02-11] MEDS ORDERED: NORCO, ANEXSIA 5/325MG TABLET (HYDROcodone/ACETAMINOPHEN) PO PRN (15:30)
[2024-02-11] MEDS: oxyCODONE 5MG TAB PO PRN (15:40)
[2024-02-11 16:54] VITALS: BP 119/61; TEMP 98.6; O2SAT 96
[2024-02-11] MEDS ORDERED: KETOROLAC 30 MG/ML 1ML VIAL IV SCH (18:00)
== END 2024-02-11 17:07 | disposition home or self-care (01) ==
LOC: M SDC 10:24
PROVIDERS: ATTEND Surgery
DX: O26.612 Liver and biliary tract disorders in pregnancy, second trimester (principal); Z3A.14 14 weeks gestation of pregnancy; Z91.030 Bee allergy status
CPT/HCPCS: 47562; 88304; J0131; J0665; J0690; J1100; J1171; J1596; J2371; J2710; J2765; J3010; S2900

== ENCOUNTER → 2024-02-25 | Outpatient (CLI) | payer OTHER ==
[~2024-02-25] MED LIST changes: -ACETAMINOPHEN 325 MG TAB PO ONE; -INDOCYANINE GREEN 25MG VIAL (IC-GREEN) IV ONE; -LIDOCAINE 2% 100MG/5ML SDV (FOR ANES.) As Ordered ONE; -MIDAZOLAM INJ 2MG/2ML VIAL As Ordered ONE; -ROCURONIUM BROMIDE 50MG/5ML VIAL As Ordered ONE; -fentaNYL 100 MCG/2 ML INJECTION As Ordered ONE; -propofoL 200 MG/20 ML VIAL As Ordered ONE
== END ==
LOC: M PLALAB 10:16
PROVIDERS: ATTEND Advanced Practice Midwife
DX: Z34.81 Encounter for supervision of other normal pregnancy, first trimester (principal); Z3A.00 Weeks of gestation of pregnancy not specified

== ENCOUNTER → 2024-04-02 | Outpatient (CLI) | payer OTHER | LOC: M RAD 11:06 | PROVIDERS: ATTEND Specialist | DX: O32.1XX0 Maternal care for breech presentation, not applicable or unspecified (principal); Z3A.21 21 weeks gestation of pregnancy ==

== ENCOUNTER 2024-04-23 14:51 | Outpatient (CLI) | payer OTHER ==
[~2024-04-23] VITALS: Ht 165.1 cm; Wt 82.2 kg
[2024-04-23 15:11] VITALS: BP 115/58
[2024-04-23] MEDS ORDERED: ACET-907 PO (15:15)
[2024-04-23] MEDS ORDERED: HOME MED LIST COMPLETE! XX SCH (15:20)
[2024-04-23] MEDS: NS (Normal Saline) 0.9% 1,000 ML IV ONE (16:52)
[2024-04-23 16:55] VITALS: BP 111/55
[2024-04-23 17:14] LABS: BASO % 0.1 % (0.0-1.0); EOS # 0.1 10^3/uL (0.0-0.5); EOS % 0.7 % (0.0-3.0); HEMATOCRIT 34.1 % (36.0-47.0); HEMOGLOBIN 11.1 g/dl (12.0-15.5); LYMPH # 0.7 10^3/uL (1.5-5.0); LYMPH % 9.6 % (24.0-44.0); MEAN CORPUSCULAR HEMOGLOBIN 30.2 pg (27.0-33.0); MEAN CORPUSCULAR HGB CONC 32.6 g/dl (32.0-36.5); MEAN CORPUSCULAR VOLUME 92.7 fl (80.0-96.0); MONO # 0.5 10^3/uL (0.0-0.8); MONO % 6.3 % (2.0-8.0); NEUTROPHILS # 6.3 10^3/uL (1.5-8.5); NEUTROPHILS % 82.8 % (36.0-66.0); PLATELET COUNT, AUTOMATED 210 10^3/uL (150-450); RED BLOOD COUNT 3.68 10^6/uL (4.00-5.40); WHITE BLOOD COUNT 7.6 10^3/uL (4.0-10.0)
[2024-04-23 17:42] LABS: ALBUMIN 3.2 G/DL (3.2-5.2); ALKALINE PHOSPHATASE 99 U/L (35-104); ALT/SGPT 11 U/L (7.0-40); AST/SGOT 11 U/L (<34); BILIRUBIN,TOTAL 0.6 MG/DL (0.3-1.2); BLOOD UREA NITROGEN 11 MG/DL (9-23); CALCIUM LEVEL 8.7 MG/DL (8.5-10.1); CARBON DIOXIDE LEVEL 22 MMOL/L (20-31); CHLORIDE LEVEL 107 MMOL/L (98-107); CREATININE FOR GFR 0.64 MG/DL (0.55-1.30); GLOMERULAR FILTRATION RATE > 60.0 (>60); GLUCOSE, FASTING 82 MG/DL (60-100); POTASSIUM SERUM 3.5 MMOL/L (3.5-5.1); SODIUM LEVEL 141 MMOL/L (136-145)
[2024-04-23 17:51] LABS: AMORPHOUS SEDIMENT SMALL (NEGATIVE); APPEARANCE, URINE CLOUDY (CLEAR); BACTERIA, URINE AUTO 1+ (NEGATIVE); BILIRUBIN, URINE AUTO NEGATIVE (NEGATIVE); BLOOD, URINE BLOOD NEGATIVE (NEGATIVE); COLOR, URINE AMBER (YELLOW); GLUCOSE, URINE (UA) AUTO NEGATIVE (NEGATIVE); KETONE, URINE AUTO 2+ mg/dL (NEGATIVE); LEUKOCYTE ESTERASE, URINE AUTO 2+ (NEGATIVE); MUCUS, URINE LARGE (NEGATIVE); NITRITE, URINE AUTO NEGATIVE (NEGATIVE); PROTEIN, URINE AUTO 2+ mg/dL (NEGATIVE); RBC, URINE AUTO 2 /HPF (0-3); SPECIFIC GRAVITY URINE AUTO 1.027 (1.002-1.035); SQUAMOUS EPITHELIAL CELL UR AU 26 /HPF (0-6); UROBILINOGEN, URINE AUTO 0.2 mg/dL (0.0-2.0); WBC, URINE AUTO 5 /HPF (0-3)
[2024-04-23] MEDS: NS (Normal Saline) 0.9% 1,000 ML IV SCH (18:01)
[2024-04-23 18:17] LABS: AMPHETAMINES URINE REFLEX NEGATIVE (NEGATIVE); BARBITURATES URINE REFLEX NEGATIVE (NEGATIVE); PHENCYCLIDINE URINE REFLEX NEGATIVE (NEGATIVE)
[2024-04-23 18:18] LABS: BENZODIAZEPINES URINE REFLEX NEGATIVE (NEGATIVE); METHADONE URINE REFLEX NEGATIVE (NEGATIVE); OPIATES URINE REFLEX NEGATIVE (NEGATIVE)
[2024-04-23 18:44] LABS: CANNABINOIDS URINE REFLEX PENDING CONFIRMATION (NEGATIVE); COCAINE METABOLITE URINE REFLE PENDING CONFIRMATION (NEGATIVE)
[2024-04-23 19:36] VITALS: BP 101/51
[2024-04-30 00:06] LABS: BENZOYLECGONINE, CONF, MS,UR 382 ng/mL (Cutoff=150); Cannabinoid Positive (.); Carboxy THC Conf, MS, UR 66 ng/mL (Cutoff=10); Cocaine Positive (.)
== END 2024-04-23 20:09 | disposition home or self-care (01) ==
LOC: M LDO 14:51
PROVIDERS: ATTEND Specialist
DX: O21.8 Other vomiting complicating pregnancy (principal); O26.892 Other specified pregnancy related conditions, second trimester; O99.342 Other mental disorders complicating pregnancy, second trimester; O99.012 Anemia complicating pregnancy, second trimester; O99.843 Bariatric surgery status complicating pregnancy, third trimester; R19.7 Diarrhea, unspecified; F41.8 Other specified anxiety disorders; D50.9 Iron deficiency anemia, unspecified; Z3A.24 24 weeks gestation of pregnancy
CPT/HCPCS: 59025; 80053; 80307; 81001; 85025; 96360; G0463; G0480

== ENCOUNTER → 2024-05-20 | Outpatient (CLI) | payer OTHER ==
[~2024-05-20] MED LIST changes: +ACET-907 PO
[2024-05-20 15:25] LABS: HEMATOCRIT 31.7 % (36.0-47.0); HEMOGLOBIN 10.3 g/dl (12.0-15.5); MEAN CORPUSCULAR HEMOGLOBIN 30.5 pg (27.0-33.0); MEAN CORPUSCULAR HGB CONC 32.5 g/dl (32.0-36.5); MEAN CORPUSCULAR VOLUME 93.8 fl (80.0-96.0); PLATELET COUNT, AUTOMATED 219 10^3/uL (150-450); RED BLOOD COUNT 3.38 10^6/uL (4.00-5.40); WHITE BLOOD COUNT 7.7 10^3/uL (4.0-10.0)
[2024-05-20 15:34] LABS: IRON (FE) 47 UG/DL (50-170)
[2024-05-20 15:35] LABS: PERCENT SATURATION 8.7 % (13.2-45.0); TOTAL IRON BINDING CAPACITY 539 UG/DL (250-425)
[2024-05-20 15:36] LABS: FERRITIN 3.4 NG/ML (7.3-270.7); TOTAL 25(OH) VITAMIN D 6.5 NG/ML (20.0-100.0)
[2024-05-20 15:37] LABS: FOLATE 8.68 NG/ML (>5.4); VITAMIN B12 LEVEL 304 PG/ML (211-911)
[2024-05-20 16:17] LABS: HIV 1&2 SCREEN NEGATIVE (NEGATIVE)
[2024-05-20 16:25] LABS: HEPATITIS C VIRUS ABY INDEX 0.02 INDEX (<0.8)
[2024-05-20 16:31] LABS: HEMOGLOBIN A1c 4.9 % (4.0-6.0)
[2024-05-20 16:51] LABS: GC DNA AMPLIFICATION NEGATIVE (NEGATIVE)
== END ==
LOC: M PLALAB 12:29
PROVIDERS: ATTEND Nurse Practitioner Family
DX: O99.845 Bariatric surgery status complicating the puerperium (principal)

== ENCOUNTER → 2024-05-26 | Outpatient (CLI) | payer OTHER | LOC: M RAD 10:21 | PROVIDERS: ATTEND Nurse Practitioner Family | DX: Z34.83 Encounter for supervision of other normal pregnancy, third trimester (principal) ==

== ENCOUNTER → 2024-06-09 | Outpatient (CLI) | payer OTHER ==
[~2024-06-09] VITALS: Ht 165.1 cm; Wt 81.8 kg
[~2024-06-09] MED LIST changes: +ALBUTEROL SULFATE 2.5MG/0.5ML INH NEB SOLN INH PRN; +EPINEPHrine INJ 1 MG/ML 1ML AMP IM PRN; +diphenhydrAMINE 50MG/ML VIAL IV PRN; +methylPREDNISolone 125MG 2ML VIAL IV PRN
[2024-06-09 15:30] VITALS: BP 124/64; O2SAT 100
[2024-06-09] MEDS: diphenhydrAMINE 25MG PO PRIOR TO INFUSION PO ONE (15:40)
[2024-06-09] MEDS: ACETAMINOPHEN 650MG PO PRIOR TO INFUSION PO ONE (15:40)
[2024-06-09] MEDS: IRON SUCROSE 200MG IVP IV ONE (16:05)
[2024-06-09 16:53] VITALS: BP 126/64; O2SAT 96
== END ==
LOC: M INFU 15:29
PROVIDERS: ATTEND Obstetrics & Gynecology
DX: D64.9 Anemia, unspecified (principal); Z91.030 Bee allergy status
CPT/HCPCS: 96374; J1756

== ENCOUNTER 2024-06-16 15:35 | Outpatient (CLI) | payer OTHER ==
[~2024-06-16] VITALS: Ht 165.1 cm; Wt 82.0 kg
[2024-06-16 15:38] VITALS: BP 93/58; O2SAT 99
[2024-06-16] MEDS: IRON SUCROSE 200 MG IVP IV ONE (15:44)
[2024-06-16] MEDS: diphenhydrAMINE 25MG CAP PO ONE (15:47)
[2024-06-16] MEDS: ACETAMINOPHEN 650 MG PO ONE (15:47)
[2024-06-16 16:22] VITALS: BP 112/55; O2SAT 98
== END 2024-06-16 16:23 ==
LOC: M INFU 15:35
PROVIDERS: ATTEND Obstetrics & Gynecology
DX: D64.9 Anemia, unspecified (principal); Z91.030 Bee allergy status
CPT/HCPCS: 96374; J1756

== ENCOUNTER 2024-07-04 11:59 | Outpatient (CLI) | payer OTHER ==
[~2024-07-04] VITALS: Ht 165.1 cm; Wt 98.1 kg
[~2024-07-04 11:59] MED LIST changes: -ALBUTEROL SULFATE 2.5MG/0.5ML INH NEB SOLN INH PRN; -EPINEPHrine INJ 1 MG/ML 1ML AMP IM PRN; -diphenhydrAMINE 50MG/ML VIAL IV PRN; -methylPREDNISolone 125MG 2ML VIAL IV PRN
[2024-07-04] MEDS ORDERED: ACET500P3 PO (12:14)
[2024-07-04] MEDS ORDERED: HOME MED LIST COMPLETE! XX SCH (12:15)
[2024-07-04 12:21] VITALS: BP 134/65; O2SAT 99
[2024-07-04] MEDS ORDERED: PROM25TA12 PO (12:31)
[2024-07-04] MEDS: LR 1,000 ML IV SCH (13:31)
[2024-07-04] MEDS: LACTATED RINGER'S 1000 ML IV STA (13:31)
[2024-07-04 13:51] LABS: AMPHETAMINES URINE REFLEX NEGATIVE (NEGATIVE); BARBITURATES URINE REFLEX NEGATIVE (NEGATIVE); BENZODIAZEPINES URINE REFLEX NEGATIVE (NEGATIVE); COCAINE METABOLITE URINE REFLE NEGATIVE (NEGATIVE); METHADONE URINE REFLEX NEGATIVE (NEGATIVE); OPIATES URINE REFLEX NEGATIVE (NEGATIVE); PHENCYCLIDINE URINE REFLEX NEGATIVE (NEGATIVE)
[2024-07-04 13:57] LABS: CANNABINOIDS URINE REFLEX PENDING CONFIRMATION (NEGATIVE)
[2024-07-04 14:00] LABS: HEMATOCRIT 33.4 % (36.0-47.0); HEMOGLOBIN 10.8 g/dl (12.0-15.5); MEAN CORPUSCULAR HEMOGLOBIN 31.2 pg (27.0-33.0); MEAN CORPUSCULAR HGB CONC 32.3 g/dl (32.0-36.5); MEAN CORPUSCULAR VOLUME 96.5 fl (80.0-96.0); PLATELET COUNT, AUTOMATED 218 10^3/uL (150-450); RED BLOOD COUNT 3.46 10^6/uL (4.00-5.40); WHITE BLOOD COUNT 7.7 10^3/uL (4.0-10.0)
[2024-07-04 14:35] LABS: LIPASE 32 U/L (12-53)
[2024-07-04 14:37] LABS: ALKALINE PHOSPHATASE 125 U/L (35-104); ALT/SGPT 13 U/L (7.0-40); AST/SGOT < 8 U/L (<34); BILIRUBIN,TOTAL 0.3 MG/DL (0.3-1.2); BLOOD UREA NITROGEN 7 MG/DL (9-23); CALCIUM LEVEL 8.1 MG/DL (8.5-10.1); CARBON DIOXIDE LEVEL 24 MMOL/L (20-31); CHLORIDE LEVEL 109 MMOL/L (98-107); CREATININE FOR GFR 0.48 MG/DL (0.55-1.30); GLOMERULAR FILTRATION RATE > 60.0 (>60); GLUCOSE, FASTING 83 MG/DL (60-100); POTASSIUM SERUM 3.6 MMOL/L (3.5-5.1); SODIUM LEVEL 141 MMOL/L (136-145); TOTAL PROTEIN 6.6 G/DL (5.7-8.2)
[2024-07-04 14:49] VITALS: BP 119/66
[2024-07-04] MEDS: KETOROLAC 30 MG/ML 1ML VIAL IV ONE (14:50)
[2024-07-04] MEDS: PROMETHAZINE 25MG/ML 1ML VIAL IV ONE (14:50)
[2024-07-04 16:47] VITALS: BP 117/59
== END 2024-07-04 17:20 | disposition home or self-care (01) ==
LOC: M LDO 11:59
PROVIDERS: ATTEND Specialist
DX: O21.8 Other vomiting complicating pregnancy (principal); O26.893 Other specified pregnancy related conditions, third trimester; O99.323 Drug use complicating pregnancy, third trimester; O99.843 Bariatric surgery status complicating pregnancy, third trimester; O99.013 Anemia complicating pregnancy, third trimester; O99.343 Other mental disorders complicating pregnancy, third trimester; O99.353 Diseases of the nervous system complicating pregnancy, third trimester; F12.90 Cannabis use, unspecified, uncomplicated; D50.9 Iron deficiency anemia, unspecified; F41.8 Other specified anxiety disorders; R19.7 Diarrhea, unspecified; G43.909 Migraine, unspecified, not intractable, without status migrainosus; Z3A.34 34 weeks gestation of pregnancy
CPT/HCPCS: 36415; 59025; 80053; 80307; 83690; 85027; 96374; 96376; G0463; G0480; J1885; J2550

== ENCOUNTER → 2024-07-15 | Outpatient (REF) | payer OTHER ==
[~2024-07-15] MED LIST changes: +ACET500P3 PO; +ESCI5SOL3 PO; +FIOR1CAP PO; +OMEP40CA4 PO; +PERCOCET PO; +PROM25TA12 PO; +SERT25TA85 PO
== END ==
LOC: M SFHCWAGY 17:20
PROVIDERS: ATTEND Obstetrics & Gynecology
DX: Z34.93 Encounter for supervision of normal pregnancy, unspecified, third trimester (principal); Z3A.36 36 weeks gestation of pregnancy

== ENCOUNTER → 2024-07-21 | Outpatient (CLI) | payer OTHER ==
[~2024-07-21] MED LIST changes: -ESCI5SOL3 PO; -FIOR1CAP PO; -OMEP40CA4 PO; -PERCOCET PO; -SERT25TA85 PO
== END ==
LOC: M WHC 09:56
PROVIDERS: ATTEND Obstetrics & Gynecology
DX: Z34.93 Encounter for supervision of normal pregnancy, unspecified, third trimester (principal); Z3A.37 37 weeks gestation of pregnancy; O99.844 Bariatric surgery status complicating childbirth

== ENCOUNTER 2024-07-26 16:07 | Outpatient (CLI) | payer OTHER ==
[~2024-07-26] VITALS: Ht 162.6 cm; Wt 91.1 kg
[2024-07-26 16:20] VITALS: BP 114/60
[2024-07-26] MEDS ORDERED: HOME MED LIST COMPLETE! XX SCH (16:30)
[2024-07-26 16:52] VITALS: BP 107/63
[2024-07-26 17:07] VITALS: BP 101/58
[2024-07-26] MEDS: FIORICET TAB PO ONE (17:20)
[2024-07-26 18:20] VITALS: BP 114/60; TEMP 97.5
[2024-07-26] MEDS ORDERED: FIOR1CAP PO (18:35)
== END 2024-07-26 18:32 | disposition home or self-care (01) ==
LOC: M LDO 16:07
PROVIDERS: ATTEND Obstetrics & Gynecology
DX: O36.8130 Decreased fetal movements, third trimester, not applicable or unspecified (principal); O47.03 False labor before 37 completed weeks of gestation, third trimester; O26.893 Other specified pregnancy related conditions, third trimester; O26.853 Spotting complicating pregnancy, third trimester; O99.323 Drug use complicating pregnancy, third trimester; O99.343 Other mental disorders complicating pregnancy, third trimester; O99.843 Bariatric surgery status complicating pregnancy, third trimester; O99.013 Anemia complicating pregnancy, third trimester; R51.9 Headache, unspecified; D50.9 Iron deficiency anemia, unspecified; F14.90 Cocaine use, unspecified, uncomplicated; F41.9 Anxiety disorder, unspecified; F32.A Depression, unspecified; F12.90 Cannabis use, unspecified, uncomplicated; Z79.899 Other long term (current) drug therapy; Z87.59 Personal history of other complications of pregnancy, childbirth and the puerperium; Z90.49 Acquired absence of other specified parts of digestive tract; Z3A.37 37 weeks gestation of pregnancy
CPT/HCPCS: 59025; 76815; G0463

== ENCOUNTER 2024-08-24 20:16 | Emergency (ER) | payer MEDICAID, OTHER ==
[~2024-08-24 20:16] MED LIST changes: +ESCI5SOL3 PO; +FIOR1CAP PO; +PERCOCET PO; +SERT25TA85 PO
[2024-08-24 20:46] LABS: BASO % 0.5 % (0.0-1.0); EOS # 0.2 10^3/uL (0.0-0.5); EOS % 3.4 % (0.0-3.0); HEMATOCRIT 30.6 % (36.0-47.0); HEMOGLOBIN 9.9 g/dl (12.0-15.5); LYMPH # 2.5 10^3/uL (1.5-5.0); LYMPH % 40.4 % (24.0-44.0); MEAN CORPUSCULAR HEMOGLOBIN 29.7 pg (27.0-33.0); MEAN CORPUSCULAR HGB CONC 32.4 g/dl (32.0-36.5); MEAN CORPUSCULAR VOLUME 91.9 fl (80.0-96.0); MONO # 0.5 10^3/uL (0.0-0.8); MONO % 8.2 % (2.0-8.0); NEUTROPHILS # 2.9 10^3/uL (1.5-8.5); NEUTROPHILS % 47.3 % (36.0-66.0); PLATELET COUNT, AUTOMATED 309 10^3/uL (150-450); RED BLOOD COUNT 3.33 10^6/uL (4.00-5.40); WHITE BLOOD COUNT 6.2 10^3/uL (4.0-10.0)
[2024-08-24 21:12] LABS: LIPASE 33 U/L (12-53)
[2024-08-24 21:13] LABS: ALBUMIN 3.6 G/DL (3.2-5.2); ALKALINE PHOSPHATASE 162 U/L (35-104); ALT/SGPT 33 U/L (7.0-40); AST/SGOT 66 U/L (<34); BILIRUBIN,DIRECT 0.2 MG/DL (<0.4); BILIRUBIN,TOTAL 0.5 MG/DL (0.3-1.2); BLOOD UREA NITROGEN 10 MG/DL (9-23); CALCIUM LEVEL 8.9 MG/DL (8.5-10.1); CARBON DIOXIDE LEVEL 27 MMOL/L (20-31); CHLORIDE LEVEL 108 MMOL/L (98-107); CREATININE FOR GFR 0.74 MG/DL (0.55-1.30); GLOMERULAR FILTRATION RATE > 90.0 (>60); GLUCOSE, FASTING 95 MG/DL (60-100); POTASSIUM SERUM 3.7 MMOL/L (3.5-5.1); SODIUM LEVEL 146 MMOL/L (136-145); TOTAL PROTEIN 6.8 G/DL (5.7-8.2)
[2024-08-24] MEDS ORDERED: ISOVUE-370 76% 100ML VIAL As Ordered ONE (22:04)
[2024-08-24] MEDS: PANTOPRAZOLE 40MG VIAL IV ONE (22:17)
[2024-08-24] MEDS: KETOROLAC 30 MG/ML 1ML VIAL IV ONE (22:17)
[2024-08-24] MEDS: ONDANSETRON 4MG 2ML VIAL IV ONE (22:17)
[2024-08-25] MEDS ORDERED: OMEP40CA4 PO
[2024-08-25] MEDS ORDERED: TRAM50TA2 PO
[2024-08-25] MEDS: traMADol 50 MG TAB PO ONE (00:07)
[2024-08-25 00:08] VITALS: BP 110/64; TEMP 98.2; O2SAT 99
== END 2024-08-25 00:15 | disposition home or self-care (01) ==
LOC: M ED 20:16
DX: R10.9 Unspecified abdominal pain (principal); G43.909 Migraine, unspecified, not intractable, without status migrainosus; F32.A Depression, unspecified; F12.10 Cannabis abuse, uncomplicated; Z98.84 Bariatric surgery status; Z91.030 Bee allergy status; Z79.899 Other long term (current) drug therapy
CPT/HCPCS: 74177; 80047; 80048; 80076; 83605; 83690; 85025; 86850; 86900; 86901; 87486; 87581; 87633; 87798; 93041; 96374; 99285; J1885; J2405; J2470; Q9967

== ENCOUNTER 2025-04-17 06:26 | Emergency (ER) | payer OTHER ==
[~2025-04-17] VITALS: Ht 162.6 cm; Wt 84.1 kg
[~2025-04-17 06:26] MED LIST changes: +IBUP-1114 PO; +IBUP600T42 PO; +OMEP40CA4 PO; +TAMS-18 PO
[2025-04-17] MEDS: ONDANSETRON 4MG ORAL DISINTEGRATING TAB PO ONE (07:27)
[2025-04-17] MEDS: ACETAMINOPHEN 500 MG TAB PO ONE (07:28)
[2025-04-17 07:57] LABS: BASO # 0.0 10^3/uL (0.0-0.2); BASO % 0.3 % (0.0-1.0); EOS # 0.0 10^3/uL (0.0-0.5); EOS % 0.2 % (0.0-3.0); LYMPH # 1.4 10^3/uL (1.5-5.0); LYMPH % 11.3 % (24.0-44.0); MONO # 0.7 10^3/uL (0.0-0.8); MONO % 5.4 % (2.0-8.0); NEUTROPHILS # 10.3 10^3/uL (1.5-8.5); NEUTROPHILS % 82.5 % (36.0-66.0); PLATELET COUNT, AUTOMATED 308 10^3/uL (150-450)
[2025-04-17 08:29] LABS: ALT/SGPT 19 U/L (7.0-40); AST/SGOT 20 U/L (<34); CALCIUM LEVEL 9.0 MG/DL (8.5-10.1); CARBON DIOXIDE LEVEL 24 MMOL/L (20-31); CHLORIDE LEVEL 106 MMOL/L (98-107); CREATININE FOR GFR 0.57 MG/DL (0.55-1.30); GLOMERULAR FILTRATION RATE > 90.0 (>60); MAGNESIUM LEVEL 1.8 MG/DL (1.8-2.4); POTASSIUM SERUM 3.5 MMOL/L (3.5-5.1); SODIUM LEVEL 141 MMOL/L (136-145)
[2025-04-17 08:31] LABS: FREE T4 0.91 NG/DL (0.89-1.76)
[2025-04-17 08:32] LABS: HCG, SERUM QUALITATIVE NEGATIVE (NEGATIVE)
[2025-04-17] MEDS ORDERED: ONDA-282 PO (08:58)
[2025-04-17 09:06] VITALS: BP 110/57; TEMP 98.4; O2SAT 98
== END 2025-04-17 09:48 | disposition home or self-care (01) ==
LOC: M ED 06:26
DX: B34.9 Viral infection, unspecified (principal); Z98.84 Bariatric surgery status; Z79.899 Other long term (current) drug therapy